=== PATIENT | female | born 1955 | race Caucasian/White ===

== ENCOUNTER 2024-01-01 11:48 | Outpatient (REF) | payer SELFPAY ==
[2024-01-01 13:02] LABS: CDiff Gene PCR NEGATIVE (Negative)
== END 2024-01-01 11:49 | disposition home or self-care (01) ==
LOC: HO.MMNH1L 11:48
PROVIDERS: Visit Provider Family Medicine
DX: Z47.81 Encounter for orthopedic aftercare following surgical amputation (principal); E11.9 Type 2 diabetes mellitus without complications
CPT/HCPCS: 87493

== ENCOUNTER 2024-01-06 06:00 | Outpatient (REF) | payer MEDICARE, MEDICAID, SELFPAY ==
[2024-01-06 06:46] LABS: Basophils Percent Auto 0.4 % (0-2); Eosinophils Absolute Auto 0.1 X10*3/uL (0.0-0.4); Eosinophils Percent Auto 1.4 % (0-4); Hematocrit 34.7 % (37.0-47.0); Imm Gran Abs Auto 0.03 X10*3/uL (0.00-0.03); Imm Gran Pct Auto 0.3 % (0.0-0.4); Lymphocytes Absolute Auto 1.3 X10*3/uL (1.2-4.9); Lymphocytes Percent Auto 12.8 % (20-40); MANUAL DIFF FLAG SCAN; Mean Corpuscular HGB Conc 31.7 g/dl (31.0-35.0); Mean Corpuscular Hemoglobin 28.6 pg (27.0-33.0); Mean Corpuscular Volume 90.1 fL (80.0-98.0); Monocytes Absolute Auto 0.7 X10*3/uL (0.1-1.2); Monocytes Percent Auto 7.1 % (2-11); Neutrophils Absolute Auto 7.7 x10*3/uL (2.0-8.3); PLT CLUMP 1; Red Blood Count 3.85 X10*6/uL (4.20-5.50); Red Cell Distribution Width 17.7 % (11.0-16.0); SCAN SMEAR FLAG 1
[2024-01-06 07:17] LABS: White Blood Count 9.8 X10*3/uL (4.8-10.8)
[2024-01-06 07:19] LABS: SLIDE REVIEW VERIFIED
== END 2024-01-06 06:01 | disposition home or self-care (01) ==
LOC: HO.MMNH1L 06:00
PROVIDERS: Family Medicine; Visit Provider Hospitalist
DX: Z47.81 Encounter for orthopedic aftercare following surgical amputation (principal); E11.9 Type 2 diabetes mellitus without complications; G92.9 Unspecified toxic encephalopathy
CPT/HCPCS: 36415; 80048; 85025

== ENCOUNTER 2024-01-08 05:48 | Outpatient (REF) | payer MEDICARE, MEDICAID, SELFPAY ==
[2024-01-08 06:20] LABS: Anion Gap 14 (12-20); Blood Urea Nitrogen 22 mg/dL (9-16); Carbon Dioxide 23 mmol/L (22-29); Chloride 106 mmol/L (96-108); Estimated Glomerular Filt Rate > 60; Glucose Random 91 mg/dL (60-115); Potassium 4.2 mmol/L (3.3-5.1); Sodium 139 mmol/L (135-145)
== END 2024-01-08 05:49 | disposition home or self-care (01) ==
LOC: HO.MMNH1L 05:48
PROVIDERS: Visit Provider Family Medicine
DX: Z47.81 Encounter for orthopedic aftercare following surgical amputation (principal)
CPT/HCPCS: 36415; 80048

== ENCOUNTER 2024-01-26 06:43 | Outpatient (REF) | payer MEDICARE, SELFPAY ==
[2024-01-26 05:59] LABS: MANUAL DIFF FLAG NO
[2024-01-26 07:18] LABS: Basophils Percent Auto 0.5 % (0-2); Eosinophils Absolute Auto 0.2 X10*3/uL (0.0-0.4); Eosinophils Percent Auto 2.7 % (0-4); Hemoglobin 9.8 g/dl (12.0-16.0); Imm Gran Abs Auto 0.05 X10*3/uL (0.00-0.03); Imm Gran Pct Auto 0.8 % (0.0-0.4); Lymphocytes Absolute Auto 2.5 X10*3/uL (1.2-4.9); Mean Corpuscular HGB Conc 32.7 g/dl (31.0-35.0); Mean Corpuscular Hemoglobin 28.9 pg (27.0-33.0); Mean Corpuscular Volume 88.5 fL (80.0-98.0); Mean Platelet Volume 10.7 fL (9.4-12.3); Monocytes Absolute Auto 0.8 X10*3/uL (0.1-1.2); Neutrophils Absolute Auto 3.1 x10*3/uL (2.0-8.3); Platelet Count 242 X10*3/uL (160-400); Red Blood Count 3.39 X10*6/uL (4.20-5.50); Red Cell Distribution Width 17.7 % (11.0-16.0); White Blood Count 6.6 X10*3/uL (4.8-10.8)
[2024-01-26 08:02] LABS: Anion Gap 16 (12-20); Blood Urea Nitrogen 28 mg/dL (9-16); Calcium 8.5 mg/dL (8.4-10.2); Carbon Dioxide 17 mmol/L (22-29); Chloride 108 mmol/L (96-108); Estimated Glomerular Filt Rate > 60; Glucose Random 52 mg/dL (60-115); Potassium 4.8 mmol/L (3.3-5.1); Sodium 136 mmol/L (135-145)
== END 2024-01-26 06:44 | disposition home or self-care (01) ==
LOC: HO.MMNH1L 06:43
PROVIDERS: Visit Provider Family Medicine
DX: M62.59 Muscle wasting and atrophy, not elsewhere classified, multiple sites (principal); E46 Unspecified protein-calorie malnutrition; E11.9 Type 2 diabetes mellitus without complications
CPT/HCPCS: 36415; 80048; 85025

== ENCOUNTER 2024-01-30 05:40 | Outpatient (REF) | payer MEDICARE, SELFPAY ==
[2024-01-30 06:18] LABS: Basophils Absolute Auto 0.1 X10*3/uL (0.0-0.2); Basophils Percent Auto 0.7 % (0-2); Eosinophils Absolute Auto 0.3 X10*3/uL (0.0-0.4); Eosinophils Percent Auto 2.7 % (0-4); Hematocrit 27.8 % (37.0-47.0); Hemoglobin 8.7 g/dl (12.0-16.0); Imm Gran Abs Auto 0.05 X10*3/uL (0.00-0.03); Imm Gran Pct Auto 0.5 % (0.0-0.4); Lymphocytes Absolute Auto 2.5 X10*3/uL (1.2-4.9); Mean Corpuscular HGB Conc 31.3 g/dl (31.0-35.0); Mean Corpuscular Hemoglobin 28.7 pg (27.0-33.0); Mean Corpuscular Volume 91.7 fL (80.0-98.0); Mean Platelet Volume 12.1 fL (9.4-12.3); Monocytes Absolute Auto 1.2 X10*3/uL (0.1-1.2); Monocytes Percent Auto 11.5 % (2-11); NRBC Pct Auto 0.2 /100WBC (0.0-0.2); Neutrophils Percent Auto 59.6 % (45-73); PLT CLUMP 1; Red Blood Count 3.03 X10*6/uL (4.20-5.50); Red Cell Distribution Width 18.4 % (11.0-16.0); SCAN SMEAR FLAG 1
[2024-01-30 06:20] LABS: MANUAL DIFF FLAG NO; White Blood Count 10.1 X10*3/uL (4.8-10.8)
[2024-01-30 06:39] LABS: Platelet Count 268 X10*3/uL (160-400)
== END 2024-01-30 05:41 | disposition home or self-care (01) ==
LOC: HO.MMNH1L 05:40
PROVIDERS: Visit Provider Family Medicine
DX: E11.9 Type 2 diabetes mellitus without complications (principal)
CPT/HCPCS: 36415; 85025

== ENCOUNTER 2024-02-02 05:41 | Outpatient (REF) | payer MEDICARE, SELFPAY ==
[2024-02-02 05:37] LABS: MANUAL DIFF FLAG NO
[2024-02-02 06:14] LABS: Basophils Percent Auto 0.5 % (0-2); Eosinophils Absolute Auto 0.2 X10*3/uL (0.0-0.4); Eosinophils Percent Auto 2.8 % (0-4); Imm Gran Abs Auto 0.04 X10*3/uL (0.00-0.03); Imm Gran Pct Auto 0.5 % (0.0-0.4); Lymphocytes Absolute Auto 2.7 X10*3/uL (1.2-4.9); Lymphocytes Percent Auto 34.4 % (20-40); Mean Corpuscular HGB Conc 32.3 g/dl (31.0-35.0); Mean Corpuscular Hemoglobin 29.3 pg (27.0-33.0); Mean Corpuscular Volume 90.7 fL (80.0-98.0); Mean Platelet Volume 11.3 fL (9.4-12.3); Monocytes Absolute Auto 0.7 X10*3/uL (0.1-1.2); Monocytes Percent Auto 8.9 % (2-11); Neutrophils Absolute Auto 4.1 x10*3/uL (2.0-8.3); Neutrophils Percent Auto 52.9 % (45-73); Platelet Count 280 X10*3/uL (160-400); Red Blood Count 2.05 X10*6/uL (4.20-5.50); Red Cell Distribution Width 17.2 % (11.0-16.0); White Blood Count 7.8 X10*3/uL (4.8-10.8)
[2024-02-02 06:47] LABS: Anion Gap 15 (12-20); Blood Urea Nitrogen 25 mg/dL (9-16); Calcium 8.9 mg/dL (8.4-10.2); Carbon Dioxide 20 mmol/L (22-29); Chloride 107 mmol/L (96-108); Estimated Glomerular Filt Rate > 60; Ferritin 54 ng/mL (10-250); Glucose Random 80 mg/dL (60-115); Iron 26 mcg/dL (30-160); Percent Iron Saturation 13 % (15-50); Potassium 4.3 mmol/L (3.3-5.1); Sodium 138 mmol/L (135-145); Total Iron Binding Capacity 195 mcg/dL (228-428); Unsaturated Iron Binding 169 ug/dL
[2024-02-02 06:51] LABS: Hematocrit 18.6 % (37.0-47.0)
== END 2024-02-02 05:42 | disposition home or self-care (01) ==
LOC: HO.MMNH1L 05:41
PROVIDERS: Visit Provider Family Medicine
DX: M62.59 Muscle wasting and atrophy, not elsewhere classified, multiple sites (principal); E46 Unspecified protein-calorie malnutrition; E11.9 Type 2 diabetes mellitus without complications
CPT/HCPCS: 36415; 80048; 82728; 83540; 85025

== ENCOUNTER 2024-02-24 06:29 | Outpatient (REF) | payer SELFPAY ==
[2024-02-24 05:55] LABS: MANUAL DIFF FLAG NO
[2024-02-24 06:44] LABS: Basophils Absolute Auto 0.1 X10*3/uL (0.0-0.2); Basophils Percent Auto 0.7 % (0-2); Eosinophils Absolute Auto 0.3 X10*3/uL (0.0-0.4); Eosinophils Percent Auto 4.2 % (0-4); Hematocrit 28.6 % (37.0-47.0); Imm Gran Abs Auto 0.03 X10*3/uL (0.00-0.03); Imm Gran Pct Auto 0.4 % (0.0-0.4); Lymphocytes Absolute Auto 2.2 X10*3/uL (1.2-4.9); Lymphocytes Percent Auto 28.6 % (20-40); Mean Corpuscular HGB Conc 31.5 g/dl (31.0-35.0); Mean Corpuscular Hemoglobin 28.5 pg (27.0-33.0); Mean Corpuscular Volume 90.5 fL (80.0-98.0); Mean Platelet Volume 10.6 fL (9.4-12.3); Monocytes Absolute Auto 0.6 X10*3/uL (0.1-1.2); Monocytes Percent Auto 8.4 % (2-11); Neutrophils Absolute Auto 4.4 x10*3/uL (2.0-8.3); Neutrophils Percent Auto 57.7 % (45-73); Platelet Count 312 X10*3/uL (160-400); Red Blood Count 3.16 X10*6/uL (4.20-5.50); Red Cell Distribution Width 15.3 % (11.0-16.0); White Blood Count 7.7 X10*3/uL (4.8-10.8)
[2024-02-24 06:59] LABS: Anion Gap 14 (12-20); Blood Urea Nitrogen 27 mg/dL (9-16); Calcium 8.9 mg/dL (8.4-10.2); Carbon Dioxide 18 mmol/L (22-29); Chloride 110 mmol/L (96-108); Estimated Glomerular Filt Rate > 60; Glucose Random 62 mg/dL (60-115); Potassium 4.8 mmol/L (3.3-5.1); Sodium 137 mmol/L (135-145)
== END 2024-02-24 06:30 | disposition home or self-care (01) ==
LOC: HO.MMNH1L 06:29
PROVIDERS: Visit Provider Hospitalist
DX: M62.59 Muscle wasting and atrophy, not elsewhere classified, multiple sites (principal); E46 Unspecified protein-calorie malnutrition; E11.9 Type 2 diabetes mellitus without complications
CPT/HCPCS: 36415; 80048; 85025

== ENCOUNTER 2024-03-01 18:20 | Outpatient (REF) | payer MEDICARE, MEDICAID, SELFPAY | END 2024-03-01 18:21 | disposition home or self-care (01) | LOC: HO.MMNH1L 18:20 | PROVIDERS: Visit Provider Family Medicine | DX: M62.59 Muscle wasting and atrophy, not elsewhere classified, multiple sites (principal) | CPT/HCPCS: 87070; 87077; 87186; 87205 ==

== ENCOUNTER 2024-03-22 06:52 | Outpatient (REF) | payer MEDICARE, MEDICAID, SELFPAY ==
[2024-03-22 05:50] LABS: MANUAL DIFF FLAG NO
[2024-03-22 07:11] LABS: Basophils Percent Auto 0.6 % (0-2); Eosinophils Absolute Auto 0.2 X10*3/uL (0.0-0.4); Eosinophils Percent Auto 3.1 % (0-4); Hematocrit 25.6 % (37.0-47.0); Hemoglobin 7.9 g/dl (12.0-16.0); Imm Gran Abs Auto 0.02 X10*3/uL (0.00-0.03); Imm Gran Pct Auto 0.3 % (0.0-0.4); Lymphocytes Absolute Auto 1.7 X10*3/uL (1.2-4.9); Mean Corpuscular HGB Conc 30.9 g/dl (31.0-35.0); Mean Corpuscular Hemoglobin 27.1 pg (27.0-33.0); Mean Corpuscular Volume 87.7 fL (80.0-98.0); Mean Platelet Volume 11.2 fL (9.4-12.3); Monocytes Absolute Auto 0.9 X10*3/uL (0.1-1.2); Monocytes Percent Auto 13.5 % (2-11); Neutrophils Absolute Auto 3.8 x10*3/uL (2.0-8.3); Neutrophils Percent Auto 57.5 % (45-73); Platelet Count 279 X10*3/uL (160-400); Red Blood Count 2.92 X10*6/uL (4.20-5.50); Red Cell Distribution Width 15.1 % (11.0-16.0); White Blood Count 6.7 X10*3/uL (4.8-10.8)
[2024-03-22 07:14] LABS: Anion Gap 13 (12-20); Blood Urea Nitrogen 24 mg/dL (9-16); Calcium 8.9 mg/dL (8.4-10.2); Carbon Dioxide 23 mmol/L (22-29); Chloride 110 mmol/L (96-108); Estimated Glomerular Filt Rate > 60; Glucose Random 73 mg/dL (60-115); Potassium 4.1 mmol/L (3.3-5.1); Sodium 142 mmol/L (135-145)
== END 2024-03-22 06:53 | disposition home or self-care (01) ==
LOC: HO.MMNH1L 06:52
PROVIDERS: Visit Provider Family Medicine
DX: M62.59 Muscle wasting and atrophy, not elsewhere classified, multiple sites (principal); E46 Unspecified protein-calorie malnutrition; E11.9 Type 2 diabetes mellitus without complications
CPT/HCPCS: 36415; 80048; 85025

== ENCOUNTER 2024-03-29 06:41 | Outpatient (REF) | payer MEDICARE, MEDICAID, SELFPAY ==
[2024-03-29 06:14] LABS: MANUAL DIFF FLAG NO
[2024-03-29 07:00] LABS: Basophils Percent Auto 0.5 % (0-2); Eosinophils Absolute Auto 0.2 X10*3/uL (0.0-0.4); Eosinophils Percent Auto 3.3 % (0-4); Hematocrit 26.3 % (37.0-47.0); Imm Gran Abs Auto 0.01 X10*3/uL (0.00-0.03); Imm Gran Pct Auto 0.2 % (0.0-0.4); Lymphocytes Absolute Auto 1.7 X10*3/uL (1.2-4.9); Lymphocytes Percent Auto 27.4 % (20-40); Mean Corpuscular HGB Conc 30.4 g/dl (31.0-35.0); Mean Corpuscular Hemoglobin 26.3 pg (27.0-33.0); Mean Corpuscular Volume 86.5 fL (80.0-98.0); Mean Platelet Volume 10.9 fL (9.4-12.3); Monocytes Absolute Auto 0.8 X10*3/uL (0.1-1.2); Monocytes Percent Auto 12.6 % (2-11); Neutrophils Absolute Auto 3.4 x10*3/uL (2.0-8.3); Platelet Count 268 X10*3/uL (160-400); Red Blood Count 3.04 X10*6/uL (4.20-5.50); Red Cell Distribution Width 14.9 % (11.0-16.0); White Blood Count 6.1 X10*3/uL (4.8-10.8)
[2024-03-29 07:23] LABS: Anion Gap 11 (12-20); Blood Urea Nitrogen 28 mg/dL (9-16); Calcium 8.5 mg/dL (8.4-10.2); Carbon Dioxide 22 mmol/L (22-29); Chloride 113 mmol/L (96-108); Estimated Glomerular Filt Rate > 60; Glucose Random 76 mg/dL (60-115); Potassium 4.4 mmol/L (3.3-5.1); Sodium 142 mmol/L (135-145)
== END 2024-03-29 06:42 | disposition home or self-care (01) ==
LOC: HO.MMNH1L 06:41
PROVIDERS: Visit Provider Family Medicine
DX: M62.59 Muscle wasting and atrophy, not elsewhere classified, multiple sites (principal); E46 Unspecified protein-calorie malnutrition; E11.9 Type 2 diabetes mellitus without complications
CPT/HCPCS: 36415; 80048; 85025

== ENCOUNTER 2024-04-05 06:16 | Outpatient (REF) | payer MEDICARE, MEDICAID, SELFPAY ==
[2024-04-05 07:35] LABS: Thyroid Stimulating Hormone 0.07 uIU/mL (0.32-4.0)
[2024-04-05 08:32] LABS: Estimated Average Glucose 103 mg/dL; Hemoglobin A1C 68.8332 umol/L; Hemoglobin A1c % 5.2 % (<6.0); Total Hemoglobin (HGBA1C) 2057.5209 umol/L
== END 2024-04-05 06:17 | disposition home or self-care (01) ==
LOC: HO.MMNH1L 06:16
PROVIDERS: Visit Provider Hospitalist
DX: D64.9 Anemia, unspecified (principal)
CPT/HCPCS: 36415; 83036; 84443

== ENCOUNTER 2024-04-29 05:59 | Outpatient (REF) | payer MEDICARE, SELFPAY ==
[2024-04-29 06:02] LABS: MANUAL DIFF FLAG NO
[2024-04-29 06:37] LABS: Basophils Percent Auto 0.5 % (0-2); Eosinophils Absolute Auto 0.3 X10*3/uL (0.0-0.4); Eosinophils Percent Auto 3.5 % (0-4); Hematocrit 24.1 % (37.0-47.0); Hemoglobin 7.4 g/dl (12.0-16.0); Imm Gran Abs Auto 0.06 X10*3/uL (0.00-0.03); Imm Gran Pct Auto 0.7 % (0.0-0.4); Lymphocytes Absolute Auto 2.6 X10*3/uL (1.2-4.9); Lymphocytes Percent Auto 32.2 % (20-40); Mean Corpuscular HGB Conc 30.7 g/dl (31.0-35.0); Mean Corpuscular Hemoglobin 25.9 pg (27.0-33.0); Mean Corpuscular Volume 84.3 fL (80.0-98.0); Monocytes Absolute Auto 0.8 X10*3/uL (0.1-1.2); Monocytes Percent Auto 10.3 % (2-11); Neutrophils Absolute Auto 4.2 x10*3/uL (2.0-8.3); Neutrophils Percent Auto 52.8 % (45-73); Platelet Count 215 X10*3/uL (160-400); Red Blood Count 2.86 X10*6/uL (4.20-5.50); Red Cell Distribution Width 15.5 % (11.0-16.0)
== END 2024-04-29 06:00 | disposition home or self-care (01) ==
LOC: HO.MMNH1L 05:59
DX: M62.59 Muscle wasting and atrophy, not elsewhere classified, multiple sites (principal); Z47.81 Encounter for orthopedic aftercare following surgical amputation
CPT/HCPCS: 36415; 85025

== ENCOUNTER 2024-05-24 06:25 | Outpatient (REF) | payer MEDICARE, SELFPAY ==
[2024-05-24 06:19] LABS: MANUAL DIFF FLAG NO
[2024-05-24 06:24] LABS: Basophils Percent Auto 0.5 % (0-2); Eosinophils Absolute Auto 0.3 X10*3/uL (0.0-0.4); Hematocrit 24.6 % (37.0-47.0); Hemoglobin 7.6 g/dl (12.0-16.0); Imm Gran Abs Auto 0.02 X10*3/uL (0.00-0.03); Imm Gran Pct Auto 0.3 % (0.0-0.4); Lymphocytes Absolute Auto 1.9 X10*3/uL (1.2-4.9); Lymphocytes Percent Auto 30.2 % (20-40); Mean Corpuscular HGB Conc 30.9 g/dl (31.0-35.0); Mean Corpuscular Hemoglobin 25.3 pg (27.0-33.0); Mean Platelet Volume 11.4 fL (9.4-12.3); Monocytes Absolute Auto 0.8 X10*3/uL (0.1-1.2); Monocytes Percent Auto 12.1 % (2-11); Neutrophils Absolute Auto 3.3 x10*3/uL (2.0-8.3); Neutrophils Percent Auto 51.9 % (45-73); Platelet Count 262 X10*3/uL (160-400); Red Cell Distribution Width 15.6 % (11.0-16.0); White Blood Count 6.4 X10*3/uL (4.8-10.8)
[2024-05-24 06:40] LABS: Anion Gap 12 (12-20); Blood Urea Nitrogen 19 mg/dL (9-16); Calcium 8.4 mg/dL (8.4-10.2); Carbon Dioxide 24 mmol/L (22-29); Chloride 109 mmol/L (96-108); Estimated Glomerular Filt Rate > 60; Glucose Random 73 mg/dL (60-115); Potassium 3.9 mmol/L (3.3-5.1); Sodium 141 mmol/L (135-145)
== END 2024-05-24 06:26 | disposition home or self-care (01) ==
LOC: HO.MMNH1L 06:25
PROVIDERS: Visit Provider Nurse Practitioner
DX: D64.9 Anemia, unspecified (principal); I10 Essential (primary) hypertension; G70.00 Myasthenia gravis without (acute) exacerbation
CPT/HCPCS: 36415; 80048; 85025

== ENCOUNTER 2024-06-28 06:08 | Outpatient (REF) | payer MEDICARE, SELFPAY ==
[2024-06-28 06:06] LABS: MANUAL DIFF FLAG NO
[2024-06-28 06:32] LABS: Basophils Percent Auto 0.6 % (0-2); Eosinophils Absolute Auto 0.3 X10*3/uL (0.0-0.4); Hematocrit 27.3 % (37.0-47.0); Hemoglobin 8.3 g/dl (12.0-16.0); Imm Gran Abs Auto 0.02 X10*3/uL (0.00-0.03); Imm Gran Pct Auto 0.3 % (0.0-0.4); Lymphocytes Absolute Auto 1.9 X10*3/uL (1.2-4.9); Lymphocytes Percent Auto 27.7 % (20-40); Mean Corpuscular HGB Conc 30.4 g/dl (31.0-35.0); Mean Corpuscular Hemoglobin 24.9 pg (27.0-33.0); Mean Platelet Volume 11.5 fL (9.4-12.3); Monocytes Absolute Auto 0.7 X10*3/uL (0.1-1.2); Monocytes Percent Auto 10.4 % (2-11); Neutrophils Absolute Auto 3.9 x10*3/uL (2.0-8.3); Platelet Count 239 X10*3/uL (160-400); Red Blood Count 3.33 X10*6/uL (4.20-5.50); Red Cell Distribution Width 16.3 % (11.0-16.0); White Blood Count 6.8 X10*3/uL (4.8-10.8)
[2024-06-28 06:54] LABS: Anion Gap 10 (12-20); Blood Urea Nitrogen 26 mg/dL (9-16); Calcium 8.7 mg/dL (8.4-10.2); Carbon Dioxide 22 mmol/L (22-29); Chloride 112 mmol/L (96-108); Estimated Glomerular Filt Rate > 60; Glucose Random 71 mg/dL (60-115); Potassium 4.3 mmol/L (3.3-5.1); Sodium 140 mmol/L (135-145)
== END 2024-06-28 06:09 | disposition home or self-care (01) ==
LOC: HO.MMNH1L 06:08
PROVIDERS: Visit Provider Nurse Practitioner
DX: D64.9 Anemia, unspecified (principal); I10 Essential (primary) hypertension; G70.00 Myasthenia gravis without (acute) exacerbation
CPT/HCPCS: 36415; 80048; 85025

== ENCOUNTER 2024-07-26 06:16 | Outpatient (REF) | payer MEDICARE, MEDICAID, SELFPAY ==
[2024-07-26 06:04] LABS: MANUAL DIFF FLAG NO
[2024-07-26 06:40] LABS: Basophils Percent Auto 0.5 % (0-2); Eosinophils Absolute Auto 0.2 X10*3/uL (0.0-0.4); Eosinophils Percent Auto 3.2 % (0-4); Hematocrit 28.2 % (37.0-47.0); Hemoglobin 8.7 g/dl (12.0-16.0); Imm Gran Abs Auto 0.01 X10*3/uL (0.00-0.03); Imm Gran Pct Auto 0.2 % (0.0-0.4); Lymphocytes Absolute Auto 1.7 X10*3/uL (1.2-4.9); Lymphocytes Percent Auto 25.8 % (20-40); Mean Corpuscular HGB Conc 30.9 g/dl (31.0-35.0); Mean Corpuscular Hemoglobin 25.2 pg (27.0-33.0); Mean Corpuscular Volume 81.7 fL (80.0-98.0); Mean Platelet Volume 11.3 fL (9.4-12.3); Monocytes Absolute Auto 0.8 X10*3/uL (0.1-1.2); Monocytes Percent Auto 11.5 % (2-11); Neutrophils Absolute Auto 3.9 x10*3/uL (2.0-8.3); Neutrophils Percent Auto 58.8 % (45-73); Platelet Count 234 X10*3/uL (160-400); Red Blood Count 3.45 X10*6/uL (4.20-5.50); Red Cell Distribution Width 16.4 % (11.0-16.0); White Blood Count 6.6 X10*3/uL (4.8-10.8)
[2024-07-26 06:52] LABS: Anion Gap 12 (12-20); Blood Urea Nitrogen 27 mg/dL (9-16); Calcium 8.7 mg/dL (8.4-10.2); Carbon Dioxide 23 mmol/L (22-29); Chloride 111 mmol/L (96-108); Estimated Glomerular Filt Rate > 60; Glucose Random 76 mg/dL (60-115); Potassium 4.1 mmol/L (3.3-5.1); Sodium 142 mmol/L (135-145)
== END 2024-07-26 06:17 | disposition home or self-care (01) ==
LOC: HO.MMNH1L 06:16
PROVIDERS: Visit Provider Nurse Practitioner
DX: D64.9 Anemia, unspecified (principal); I10 Essential (primary) hypertension; G47.00 Insomnia, unspecified
CPT/HCPCS: 36415; 80048; 85025

== ENCOUNTER 2024-08-10 06:26 | Outpatient (REF) | payer MEDICARE, MEDICAID, SELFPAY ==
[2024-08-10 07:07] LABS: Alanine Aminotransferase 14 U/L (0-31); Alkaline Phosphatase 31 U/L (39-117); Anion Gap 10 (12-20); Aspartate Amino Transferase 23 U/L (5-31); Bilirubin Total 0.2 mg/dL (0.0-1.0); Blood Urea Nitrogen 27 mg/dL (9-16); Calcium 8.7 mg/dL (8.4-10.2); Carbon Dioxide 24 mmol/L (22-29); Chloride 111 mmol/L (96-108); Cholesterol 83 mg/dL (<200); Estimated Glomerular Filt Rate > 60; Glucose Random 75 mg/dL (60-115); HDL Cholesterol 35 mg/dL (>40); LDL Cholesterol Calculated 41 mg/dL (<100); Potassium 4.4 mmol/L (3.3-5.1); Sodium 141 mmol/L (135-145); Total Protein 5.7 g/dL (6.5-8.0); Triglycerides 36 mg/dL (<150)
== END 2024-08-10 06:27 | disposition home or self-care (01) ==
LOC: HO.MMNH1L 06:26
PROVIDERS: Visit Provider Nurse Practitioner
DX: F01.50 Vascular dementia, unspecified severity, without behavioral disturbance, psychotic disturbance, mood disturbance, and anxiety (principal); Z13.6 Encounter for screening for cardiovascular disorders
CPT/HCPCS: 36415; 80053; 80061

== ENCOUNTER 2024-08-13 08:44 | Outpatient (REF) | payer MEDICARE, MEDICAID, SELFPAY ==
[2024-08-13 10:22] LABS: Influenza A PCR NEGATIVE (Negative); Influenza B PCR NEGATIVE (Negative); Resp Syncy Virus RNA Qual PCR NEGATIVE (Negative); SARS COV2 PCR INHOUSE NEGATIVE (Negative)
== END 2024-08-13 08:45 | disposition home or self-care (01) ==
LOC: HO.MMNH1L 08:44
PROVIDERS: Visit Provider Nurse Practitioner
DX: F41.9 Anxiety disorder, unspecified (principal)
CPT/HCPCS: 0241U

== ENCOUNTER 2024-08-14 11:36 | Outpatient (REF) | payer MEDICARE, MEDICAID, SELFPAY ==
[2024-08-14 12:08] LABS: Basophils Percent Auto 0.7 % (0-2); Eosinophils Percent Auto 0.7 % (0-4); Imm Gran Abs Auto 0.01 X10*3/uL (0.00-0.03); Imm Gran Pct Auto 0.2 % (0.0-0.4); Lymphocytes Absolute Auto 0.8 X10*3/uL (1.2-4.9); Lymphocytes Percent Auto 18.5 % (20-40); MANUAL DIFF FLAG NO; Mean Corpuscular Hemoglobin 25.6 pg (27.0-33.0); Mean Corpuscular Volume 82.4 fL (80.0-98.0); Mean Platelet Volume 11.3 fL (9.4-12.3); Monocytes Absolute Auto 0.7 X10*3/uL (0.1-1.2); Monocytes Percent Auto 16.8 % (2-11); Neutrophils Absolute Auto 2.6 x10*3/uL (2.0-8.3); Neutrophils Percent Auto 63.1 % (45-73); Platelet Count 237 X10*3/uL (160-400); Red Blood Count 3.52 X10*6/uL (4.20-5.50); Red Cell Distribution Width 16.8 % (11.0-16.0); White Blood Count 4.1 X10*3/uL (4.8-10.8)
[2024-08-14 12:24] LABS: Alanine Aminotransferase 19 U/L (0-31); Albumin Level 3.4 g/dL (3.5-5.0); Alkaline Phosphatase 33 U/L (39-117); Anion Gap 12 (12-20); Aspartate Amino Transferase 25 U/L (5-31); Bilirubin Total 0.2 mg/dL (0.0-1.0); Blood Urea Nitrogen 21 mg/dL (9-16); Calcium 8.7 mg/dL (8.4-10.2); Carbon Dioxide 22 mmol/L (22-29); Chloride 107 mmol/L (96-108); Estimated Glomerular Filt Rate > 60; Glucose Random 106 mg/dL (60-115); Magnesium 1.8 mg/dL (1.6-2.6); Potassium 4.3 mmol/L (3.3-5.1); Sodium 137 mmol/L (135-145); Total Protein 6.4 g/dL (6.5-8.0)
[2024-08-14 12:37] LABS: Procalcitonin 0.05 ng/mL
== END 2024-08-14 11:37 | disposition home or self-care (01) ==
LOC: HO.MMNH1L 11:36
PROVIDERS: Visit Provider Nurse Practitioner
DX: R50.9 Fever, unspecified (principal)
CPT/HCPCS: 36415; 80053; 83735; 84145; 85025; 87040

== ENCOUNTER 2024-08-16 06:17 | Outpatient (REF) | payer MEDICARE, MEDICAID, SELFPAY ==
--- OUTSIDE RECORDS SUMMARY | 2024-08-16 06:19 | XMS_ITS | Patient Health Record ---
Author Organization [facility] Billing Info Address [address] [place] [id number] Care Team Providers Care Tower Hand Name Role Phone YULY Jin Unavailable [phone] Reason For Referral No Information Plan Of Treatment No Information
[2024-08-16 07:34] LABS: Appearance Urine Clear; Color Urine Yellow; Glucose Urine UA Negative (Negative); Leukocyte Esterase Urine Negative (Negative); Nitrite Urine Negative (Negative); Specific Gravity - Urine 1.015 (1.005-1.025); Urine Blood Negative (Negative); Urine Ketones Negative (Negative); Urine Protein Negative (Neg-Trace)
== END 2024-08-16 06:18 | disposition home or self-care (01) ==
LOC: HO.MMNH1L 06:17
PROVIDERS: Visit Provider Nurse Practitioner
DX: N39.0 Urinary tract infection, site not specified (principal)
CPT/HCPCS: 81003; 87086

== ENCOUNTER 2024-08-17 14:00 | Outpatient (REF) | payer MEDICARE, MEDICAID, SELFPAY ==
--- OUTSIDE RECORDS SUMMARY | 2024-08-18 07:28 | XMS_ITS | Patient Health Record ---
Author Organization [facility] Billing Info Address [address] [place] [address] Care Team Providers Care Microarray Specialist Name Role Phone YULY Jin Unavailable [phone] Reason For Referral No Information Plan Of Treatment No Information
== END 2024-08-17 14:01 | disposition home or self-care (01) ==
LOC: HO.MMNH1L 14:00
PROVIDERS: Visit Provider Nurse Practitioner
DX: M62.59 Muscle wasting and atrophy, not elsewhere classified, multiple sites (principal); I73.9 Peripheral vascular disease, unspecified
CPT/HCPCS: 0241U

== ENCOUNTER 2024-08-18 05:48 | Outpatient (REF) | payer MEDICARE, MEDICAID, SELFPAY | END 2024-08-18 05:49 | disposition home or self-care (01) | LOC: HO.MMNH1L 05:48 | PROVIDERS: Visit Provider Nurse Practitioner | DX: Z13.89 Encounter for screening for other disorder (principal) ==

== ENCOUNTER 2024-09-07 16:41 | Outpatient (REF) | payer MEDICARE, MEDICAID, SELFPAY ==
[2024-09-08 12:14] LABS: Adenovirus PCR Not Detected (Not Detect.); Bordetella parapertussis PCR Not Detected (Not Detect.); Bordetella pertussis PCR Not Detected (Not Detect.); Chlamydia pneumoniae PCR Not Detected (Not Detect.); Coronavirus 229E PCR Not Detected (Not Detect.); Coronavirus HKU1 PCR Not Detected (Not Detect.); Coronavirus NL63 PCR Not Detected (Not Detect.); Coronavirus OC43 PCR Not Detected (Not Detect.); Human metapneumovirus PCR Not Detected (Not Detect.); Influenza A PCR Not Detected (Not Detect.); Influenza B PCR Not Detected (Not Detect.); Mycoplasma pneumoniae PCR Not Detected (Not Detect.); Parainfluenza 1 PCR Not Detected (Not Detect.); Parainfluenza 2 PCR Not Detected (Not Detect.); Parainfluenza 3 PCR Not Detected (Not Detect.); Parainfluenza 4 PCR Not Detected (Not Detect.); RSV PCR Detected (Not Detect.); Rhino/Enterovirus PCR Not Detected (Not Detect.); SARS-CoV-2 PCR Not Detected (Not Detect.)
== END 2024-09-07 16:42 | disposition home or self-care (01) ==
LOC: HO.MMNH1L 16:41
PROVIDERS: Visit Provider Nurse Practitioner
DX: Z47.81 Encounter for orthopedic aftercare following surgical amputation (principal)
CPT/HCPCS: 87633

== ENCOUNTER 2024-09-20 05:42 | Outpatient (REF) | payer MEDICARE, MEDICAID, SELFPAY ==
[2024-09-20 05:39] LABS: MANUAL DIFF FLAG NO
[2024-09-20 06:22] LABS: Basophils Absolute Auto 0.1 X10*3/uL (0.0-0.2); Basophils Percent Auto 0.9 % (0-2); Eosinophils Absolute Auto 0.1 X10*3/uL (0.0-0.4); Eosinophils Percent Auto 1.9 % (0-4); Hemoglobin 7.9 g/dl (12.0-16.0); Imm Gran Abs Auto 0.03 X10*3/uL (0.00-0.03); Imm Gran Pct Auto 0.4 % (0.0-0.4); Lymphocytes Absolute Auto 2.1 X10*3/uL (1.2-4.9); Lymphocytes Percent Auto 29.6 % (20-40); Mean Corpuscular HGB Conc 30.4 g/dl (31.0-35.0); Mean Corpuscular Hemoglobin 26.5 pg (27.0-33.0); Mean Corpuscular Volume 87.2 fL (80.0-98.0); Mean Platelet Volume 10.7 fL (9.4-12.3); Monocytes Absolute Auto 0.6 X10*3/uL (0.1-1.2); Monocytes Percent Auto 8.5 % (2-11); Neutrophils Absolute Auto 4.1 x10*3/uL (2.0-8.3); Neutrophils Percent Auto 58.7 % (45-73); Platelet Count 419 X10*3/uL (160-400); Red Blood Count 2.98 X10*6/uL (4.20-5.50); Red Cell Distribution Width 18.3 % (11.0-16.0)
[2024-09-20 06:35] LABS: Anion Gap 12 (12-20); Blood Urea Nitrogen 25 mg/dL (9-16); Calcium 8.6 mg/dL (8.4-10.2); Carbon Dioxide 20 mmol/L (22-29); Chloride 112 mmol/L (96-108); Estimated Glomerular Filt Rate > 60; Glucose Random 74 mg/dL (60-115); Potassium 4.2 mmol/L (3.3-5.1); Sodium 140 mmol/L (135-145)
== END 2024-09-20 05:43 | disposition home or self-care (01) ==
LOC: HO.MMNH1L 05:42
PROVIDERS: Visit Provider Student in an Organized Health Care Education/Training Program
DX: Z47.81 Encounter for orthopedic aftercare following surgical amputation (principal); Z89.611 Acquired absence of right leg above knee; F01.A0 Vascular dementia, mild, without behavioral disturbance, psychotic disturbance, mood disturbance, and anxiety
CPT/HCPCS: 36415; 80048; 85025

== ENCOUNTER 2024-10-14 17:48 | Outpatient (REF) | payer SELFPAY ==
[2024-10-15 09:25] LABS: Adenovirus PCR Not Detected (Not Detect.); Bordetella parapertussis PCR Not Detected (Not Detect.); Bordetella pertussis PCR Not Detected (Not Detect.); Chlamydia pneumoniae PCR Not Detected (Not Detect.); Coronavirus 229E PCR Not Detected (Not Detect.); Coronavirus HKU1 PCR Not Detected (Not Detect.); Coronavirus NL63 PCR Not Detected (Not Detect.); Coronavirus OC43 PCR Not Detected (Not Detect.); Human metapneumovirus PCR Not Detected (Not Detect.); Influenza A PCR Not Detected (Not Detect.); Influenza B PCR Not Detected (Not Detect.); Mycoplasma pneumoniae PCR Not Detected (Not Detect.); Parainfluenza 1 PCR Not Detected (Not Detect.); Parainfluenza 2 PCR Not Detected (Not Detect.); Parainfluenza 3 PCR Not Detected (Not Detect.); Parainfluenza 4 PCR Not Detected (Not Detect.); RSV PCR Not Detected (Not Detect.); Rhino/Enterovirus PCR Not Detected (Not Detect.)
[2024-10-15 09:58] LABS: Influenza A H1 PCR Not Detected (Not Detect.); Influenza A H1-2009 PCR Not Detected (Not Detect.); Influenza A H3 PCR Not Detected (Not Detect.); SARS-CoV-2 PCR Not Detected (Not Detect.)
== END 2024-10-14 17:49 | disposition home or self-care (01) ==
LOC: HO.MMNH1L 17:48
PROVIDERS: Visit Provider Nurse Practitioner Family
DX: E11.9 Type 2 diabetes mellitus without complications (principal); I10 Essential (primary) hypertension
CPT/HCPCS: 87633

== ENCOUNTER 2024-11-01 06:12 | Outpatient (REF) | payer MEDICARE, SELFPAY ==
[2024-11-01 06:11] LABS: MANUAL DIFF FLAG NO
--- OUTSIDE RECORDS SUMMARY | 2024-11-01 06:15 | XMS_ITS | Patient Health Record ---
Author Organization [facility] Billing Info Address [address] [place] [address] Care Team Providers Care Hog Buyer Name Role Phone francineYULY Jett Unavailable [phone] Reason For Referral No Information Plan Of Treatment No Information
--- OUTSIDE RECORDS SUMMARY | 2024-11-01 06:15 | XMS_ITS | Encounter Summary ---
Author Organization [email or web address] Address [address] [facility] 7t [place] [address] Care Team Providers Care Trash Hauler Name Role Phone Unavailable Primary Care Provider Unavailabl e Encounter Details Date Type Department Care Team (Latest Contact Info) Description 07/28/2018 Abstract [facility] CONVERSIONS Dental, Provider, DDS Social History Tobacco Use Types Packs/Day Years Used Date Smoking Tobacco: Never Assessed Comments Unknown Sex and Gender Information Value Date Recorded Sex Assigned at Female 04/22/2022 10:29 AM EDT Legal Sex Female 10:29 AM EDT Gender Identity Female 04/22/2022 10:29 AM EDT Sexual Orientation Straight 04/22/2022 10 :29 AM EDT documented as of this encounter Plan of Treatment Not on file documented as of this encounter Visit Diagnoses Not on filedocumented in this encounter
--- OUTSIDE RECORDS SUMMARY | 2024-11-01 06:15 | XMS_ITS | Encounter Summary ---
Author Organization [employer] Address [address] [facility] 7t [place] [address] Care Team Providers Care Laboratory Helper Name Role Phone Unavailable Primary Care Provider Unavailabl e Encounter Details Date Type Department Care Team (Latest Contact Info) Description 10/04/2020 Abstract [facility] CONVERSIONS Dental, Provider, DDS Social History Tobacco [...]
--- OUTSIDE RECORDS SUMMARY | 2024-11-01 06:15 | XMS_ITS | Clinical Summary ---
Author Organization [facility] it Address [address] [place] [address] Care Team Providers Care Inner Layer Scrubber Tender Name Role Phone Unavailable Primary Care Provider Unavailabl e Immunizations Name Administration Dates Next Due Pfizer SARS-CoV-2 COVID-19, mRNA, LNP-S, preservative free 09/27/2020,09/02/2020 Surgical History Surgery Date Site/Laterality Comments NECK SURGERY PROCEDURE: HISTORICAL NECK SURGERY; COMMENT: spinal stenosis TONSILLECTOMY PROCEDURE: HISTORICAL TONSILLECTOMY CHOLECYSTECTOMY 12/1989 PROCEDURE: HISTORICAL CHOLECYSTECTOMY BREAST REDUCTION PROCEDURE: [place] BREAST REDUCTION ROBOTIC ASSISTED HYSTERECTOMY 05/31/14 PROCEDURE: HISTORICAL ROBOTIC HYSTERECTOMY WITH OR WITHOUT BSO; COMMENT: BSO; endometroid adenocarcinoma BREAST BIOPSY PROCEDURE: BX BREAST; PERC NEEDLE CORE W/IMAG GUID; COMMENT: ? rt side noncancerous Medical History Medical History Date Comments HTN (hypertension) DX:HTN (hyper tension) Myasthenia gravis (CMS/HCC V 24, CMS/HCC V28) DX:Myasthenia gravis (HCC) Peripheral neuropathy DX:Periphe ral neuropathy Elevated fasting glucose DX:Elev ated fasting glucose CAD (coronary artery disease) DX :CAD (coronary artery disease); COMMENT: h/o stent CVA (cerebral infarction) DX:CVA (cerebral infarction) Spinal stenosis DX:Spinal stenos is Hypothyroidism DX:Hypothyroidis m Leg edema DX:Leg edema Obesity DX:Obesity Type II or unspecified type diabetes mellitus with unspecified complication, not stated as uncontrolled DX:Type II or unspecified t ype diabetes mellitus with unspecified complication, not stated as uncontrolled Endometrial adenocarcinoma ( CMS/HCC V24, CMS/HCC V28) DX:Endometrial adenocarcinom a (HCC) History of other specified c onditions presenting hazards to health DX:History of other speci fied conditions presenting hazards to health; COMMENT: pt had ? ca in lining of the uterus pr pt- pt had hysterectomy in may 2014 Family History Medical History Relation Name Comments Blindness Neg Hx Breast cancer Neg Hx Cataracts Neg Hx Colon cancer Neg Hx Glaucoma Neg Hx Macular degeneration Neg Hx Ovarian cancer Neg Hx Strabismus Neg Hx Social History Tobacco Use Types Packs/Day Years Used Date Smoking Tobacco: Former Smokeless Tobacco: Never Alcohol Use Standard Drinks/Week Comments Yes 0 (1 standard drink = 0.6 oz pur e alcohol) Comments Unknown Sex and Gender Information Value Date Recorded Sex Assigned at Not on file Legal Sex Female 8:27 PM EST Gender Identity Not on file Sexual Orientation Not on file Obstetrics History Plan of Treatment Health Maintenance Due Date Last Done Comments Breast Cancer Screening 1955 Zoster Vaccines (1 of 2) 10/18/2005 Pneumococcal Vaccine: 50+ Years (2 of 2 - PCV) 03/10/2015 03/10/2014 DTaP,Tdap,and Td Vaccines (2 - Td or Tdap) 02/10/2019 02/10/2009 COVID-19 Vaccine (3 - 2023-2 5 season) 2024 09/27/2020, 09/02/2020 Influenza Vaccine (Season Ended) 2025 04/04/2014 RSV Immunization Adult Patients (1 - 1-dose 75+ series) 10/18/2030 HIB Vaccines Aged Out No longer eligi ble based on patient's age to complete this topic HPV Vaccines Aged Out No longer eligi ble based on patient's age to complete this topic Hepatitis A Vaccines Aged Out No long er eligible based on patient's age to complete this topic Hepatitis B Vaccines Aged Out No long er eligible based on patient's age to complete this topic IPV Vaccines Aged Out No longer eligi ble based on patient's age to complete this topic MMR Vaccines Aged Out No longer eligi ble based on patient's age to complete this topic Meningococcal ACWY Vaccine Aged Out N o longer eligible based on patient's age to complete this topic Meningococcal B Vaccine Aged Out No l onger eligible based on patient's age to complete this topic RSV Immunization Patients Under 20 months Aged Out No longer eligible b ased on patient's age to complete this topic Varicella Vaccines Aged Out No longer eligible based on patient's age to complete this topic
--- OUTSIDE RECORDS SUMMARY | 2024-11-01 06:15 | XMS_ITS | Encounter Summary ---
Author Organization [employer] Address [address] [facility] [address] 7t [place] [address] Care Team Providers Care Disability Services Coordinator Name Role Phone Unavailable Primary Care Provider Unavailabl e Reason for Visit * Reason Onset Date Comments medical clearance 08/22/2022 Encounter Details Date Type Department Care Team (Late st Contact Info) Description 08/22/2022 Telephone [facility] [address] [place] [address] Juliana Slaughter DDS medical clearance Social History Tobacco Use Types Packs/Day Years Used Date Smoking Tobacco: Never Smokeless Tobacco: Never Alcohol Use Standard Drinks/Week Comments Defer 0 (1 standard drink = 0.6 oz pur e alcohol) Comments Unknown Sex and Gender Information Value Date Recorded Sex Assigned at Female 04/22/2022 10:29 AM EDT Legal Sex Female 10:29 AM EDT Gender Identity Female 04/22/2022 10:29 AM EDT Sexual Orientation Straight 04/22/2022 10 :29 AM EDT COVID-19 Exposure Response Date Recorded In the last 10 days, have yo u been in contact with someone who was confirmed or suspected to have Coronavirus/COVID-19? No / Unsure 08/19/2022 3:02 PM EST documented as of this encounter Miscellaneous Notes * Telephone Encounter - Seble Benitez - 09/04/2022 12:52 PM EDT Pat Ochoa 1955 Medical clearance form was faxed over to physicians office on 09/04 * Telephone Encounter - Seble Benitez - 08/29/2022 9:[address] [facility] called stating that there was a form that was sent in to them due to patient needing treatment. She stated that it was sent a few days ago but they never received it. It was for medical clearance. Pls re send [phone] * Telephone Encounter - Susan Sandoval - 08/29/2022 8:40 AM EST Patient calling in to confirm if medical clearance was received from provider so that she can have her RCT done DR * Telephone Encounter - Susan Sandoval - 08/22/2022 9:[address] [facility] called stating that there was a form that was sent in to them due to patient needing treatment. She stated that it was sent a few days ago but they never received it. It was for medical clearance. Pls re send [phone] documented in this encounter Plan of Treatment Not on file documented as of this encounter Visit Diagnoses Not on filedocumented in this encounter
--- OUTSIDE RECORDS SUMMARY | 2024-11-01 06:15 | XMS_ITS | Encounter Summary ---
Author Organization [employer] Address [address] [facility] 7t [place] [address] Care Team Providers Care Car Dropper Name Role Phone Unavailable Primary Care Provider Unavailabl e Encounter Details Date Type Department Care Team (Latest Contact Info) Description 09/24/2021 Abstract [facility] CONVERSIONS Dental, Provider, DDS Social History Tobacco [...]
--- OUTSIDE RECORDS SUMMARY | 2024-11-01 06:15 | XMS_ITS | Clinical Summary ---
Author Organization [employer] Address [address] [facility] 7t [place] [address] Care Team Providers Care Chemist Assistant Name Role Phone Unavailable Primary Care Provider Unavailabl e Allergies Active Allergy Reactions Criticality Noted Date Comments Pollen Extract 11/22/2014 Medications Clopidogrel Bisulfate (PLAVIX PO) Take by mouth. 02/20/2017 Active acetaminophen (Tylenol 8 Hour) 650 MG ER tablet Take 650 mg by mouth every 8 (eight) hours if needed. 10/21/2022 Active atorvastatin (Lipitor) 20 MG tablet 10/24/2022 Active calcium citrate (Calcitrate) 950 (200 Ca) MG tablet Take 2 tablets by mouth in the morning. Active ezetimibe (Zetia) 10 MG tablet Take 10 mg by mouth in the morning. 08/06/2022 Active gabapentin (Neurontin) 100 MG capsule TAKE 1 CAPSULE BY MOUTH NIGHTLY AT BEDTIME. 07/04/2022 Active levothyroxine (Synthroid, Levoxyl) 175 MCG tablet Take 175 mcg by mouth in the morning. 08/28/2022 Active Social History Tobacco Use Types Packs/Day Years Used Date Smoking Tobacco: Never Smokeless Tobacco: Never Tobacco Cessation:Counseling Given: Not Answered Alcohol Use Standard Drinks/Week Comments Defer 0 (1 standard drink = 0.6 oz pur e alcohol) Comments Unknown Sex and Gender Information Value Date Recorded Sex Assigned at Female 04/22/2022 10:29 AM EDT Legal Sex Female 10:29 AM EDT Gender Identity Female 04/22/2022 10:29 AM EDT Sexual Orientation Straight 04/22/2022 10 :29 AM EDT Plan of Treatment Health Maintenance Due Date Last Done Comments CT Colonography 1955 Colonoscopy 1955 Colorectal Cancer Screening 1955 Dental Oral Exam 1955 Dental Prophylaxis 1955 Dental X-Ray: Full Mouth 1955 Depression Screening 1955 FIT DNA/Cologuard 1955 FIT 1955 FOBT 1955 Lipid Panel 1955 SDOH Screening 1955 Sigmoidoscopy 1955 Alcohol/Substance Use Screening 1967 Hepatitis C Screening 10/18/1973 RSV Patients and Patients Aged 60 years or older (1 - Risk 60-74 years 1-dose series) 2015 Mammogram 06/22/2020 06/22/2018, 05/23, 06/03/2017 Tobacco Screening 08/19/2023 08/19/2022 Dental X-Ray: Bitewings 08/20/2023 08/19/2022 COVID-19 Vaccine ( season) 2024 03/28/2022, 10/29/2021, 03/22/2021, Additional history exists Influenza Vaccine (#1) 2024 , 03/11/2021, 02/24/2020, Additional history exists DTaP/Tdap/Td Vaccines (3 - Td or Tdap) 03/23/2028 03/23/2018, 02/10/2009 Zoster Vaccines Completed 05/25/2019, 02/19/2019 Pneumococcal Vaccine: 50+ Years Completed 04/22/2022, 12/26/2016, 03/10/2014 HIB Vaccines Aged Out No longer eligi [...] patient's age to complete this topic Meningococcal Vaccine Aged Out No dot zurdo eligible based on patient's age to complete this topic RSV under 20 months Aged Out No longe r eligible based on patient's age to complete this topic Rotavirus Vaccines Aged Out No longer eligible based on patient's age to complete this topic Procedures Procedure Name Priority Date/Time Associated Diagnosis Comments BITEWING - SINGLE RADIOGRAPHIC IMAGE Routine 08/19/2022 3:00 PM EST BI MAMMOGRAM SCREENING BILATERAL Routine 06/22/2018 11:20 AM EST from Last 3 Months or Most Recently Relevant to Health Maintenance Results * 3D DIGITAL FREDA SCR MAMMO 1 (06/22/2018 11:20 AM EST) Anatomical Region Laterality Modality Breast Bilateral Mammography 06/22/2018 11:2 0 AM EST Narrative 06/22/2018 11:22 AM EST Refer to the Notes tab for result details Legacy Procedure: 3D DIGITAL FREDA SCR MAMMO 1 Procedure Note Provider, MD [place] - 09/14/2022 Refer to the Notes tab for result details Legacy Procedure: 3D DIGITAL FREDA SCR MAMMO 1 Nicholas Boyd MD IMG BI PROCEDURES Final Resul t from Last 3 Months or Most Recently Relevant to Health Maintenance Insurance [facility]AL-[facility] MEDICAID STAND ADULT
[2024-11-01 06:55] LABS: Basophils Absolute Auto 0.1 X10*3/uL (0.0-0.2); Basophils Percent Auto 0.8 % (0-2); Eosinophils Absolute Auto 0.3 X10*3/uL (0.0-0.4); Eosinophils Percent Auto 4.9 % (0-4); Hematocrit 28.5 % (37.0-47.0); Hemoglobin 8.4 g/dl (12.0-16.0); Imm Gran Abs Auto 0.02 X10*3/uL (0.00-0.03); Imm Gran Pct Auto 0.3 % (0.0-0.4); Lymphocytes Absolute Auto 2.2 X10*3/uL (1.2-4.9); Lymphocytes Percent Auto 37.1 % (20-40); Mean Corpuscular HGB Conc 29.5 g/dl (31.0-35.0); Mean Corpuscular Hemoglobin 25.5 pg (27.0-33.0); Mean Corpuscular Volume 86.6 fL (80.0-98.0); Mean Platelet Volume 11.4 fL (9.4-12.3); Monocytes Absolute Auto 0.6 X10*3/uL (0.1-1.2); Monocytes Percent Auto 10.4 % (2-11); Neutrophils Absolute Auto 2.8 x10*3/uL (2.0-8.3); Neutrophils Percent Auto 46.5 % (45-73); Platelet Count 295 X10*3/uL (160-400); Red Blood Count 3.29 X10*6/uL (4.20-5.50); Red Cell Distribution Width 17.2 % (11.0-16.0)
[2024-11-01 07:05] LABS: Anion Gap 11 (12-20); Blood Urea Nitrogen 36 mg/dL (9-16); Calcium 8.4 mg/dL (8.4-10.2); Carbon Dioxide 23 mmol/L (22-29); Chloride 110 mmol/L (96-108); Estimated Glomerular Filt Rate > 60; Glucose Random 71 mg/dL (60-115); Potassium 4.8 mmol/L (3.3-5.1); Sodium 139 mmol/L (135-145)
== END 2024-11-01 06:13 | disposition home or self-care (01) ==
LOC: HO.MMNH1L 06:12
PROVIDERS: Visit Provider Student in an Organized Health Care Education/Training Program
DX: D64.9 Anemia, unspecified (principal); I10 Essential (primary) hypertension; G70.00 Myasthenia gravis without (acute) exacerbation
CPT/HCPCS: 36415; 80048; 85025

== ENCOUNTER 2024-11-22 05:48 | Outpatient (REF) | payer MEDICARE, SELFPAY ==
[2024-11-22 05:44] LABS: MANUAL DIFF FLAG NO
--- OUTSIDE RECORDS SUMMARY | 2024-11-22 05:51 | XMS_ITS | Clinical Summary ---
Author Organization [facility] it Address [address] [place] [address] Care Team Providers Care Health Inspector Food Name Role Phone Unavailable Primary Care Provider Unavailabl e Immunizations Name Administration Dates Next Due Pfizer SARS-CoV-2 COVID-19, mRNA, LNP-S, preservative free 09/27/2020,09/02/2020 Surgical History Surgery Date Site/Laterality Comments NECK SURGERY PROCEDURE: HISTORICAL NECK SURGERY; COMMENT: spinal stenosis TONSILLECTOMY PROCEDURE: HISTORICAL TONSILLECTOMY CHOLECYSTECTOMY 12/1989 PROCEDURE: HISTORICAL CHOLECYSTECTOMY BREAST REDUCTION PROCEDURE: [place] BREAST REDUCTION ROBOTIC ASSISTED HYSTERECTOMY 05/31/14 PROCEDURE: [...]
[2024-11-22 06:47] LABS: Anion Gap 13 (12-20); Blood Urea Nitrogen 34 mg/dL (9-16); Calcium 8.7 mg/dL (8.4-10.2); Carbon Dioxide 23 mmol/L (22-29); Chloride 110 mmol/L (96-108); Estimated Glomerular Filt Rate > 60; Glucose Random 78 mg/dL (60-115); Potassium 5.1 mmol/L (3.3-5.1); Sodium 141 mmol/L (135-145)
[2024-11-22 06:55] LABS: Basophils Absolute Auto 0.1 X10*3/uL (0.0-0.2); Basophils Percent Auto 0.8 % (0-2); Eosinophils Absolute Auto 0.4 X10*3/uL (0.0-0.4); Eosinophils Percent Auto 4.8 % (0-4); Hematocrit 31.2 % (37.0-47.0); Hemoglobin 9.1 g/dl (12.0-16.0); Imm Gran Abs Auto 0.01 X10*3/uL (0.00-0.03); Imm Gran Pct Auto 0.1 % (0.0-0.4); Lymphocytes Absolute Auto 2.4 X10*3/uL (1.2-4.9); Mean Corpuscular HGB Conc 29.2 g/dl (31.0-35.0); Mean Corpuscular Hemoglobin 26.2 pg (27.0-33.0); Mean Corpuscular Volume 89.9 fL (80.0-98.0); Mean Platelet Volume 11.2 fL (9.4-12.3); Monocytes Absolute Auto 0.8 X10*3/uL (0.1-1.2); Monocytes Percent Auto 11.2 % (2-11); Neutrophils Absolute Auto 3.6 x10*3/uL (2.0-8.3); Neutrophils Percent Auto 50.1 % (45-73); Platelet Count 272 X10*3/uL (160-400); Red Blood Count 3.47 X10*6/uL (4.20-5.50); Red Cell Distribution Width 17.7 % (11.0-16.0); White Blood Count 7.2 X10*3/uL (4.8-10.8)
== END 2024-11-22 05:49 | disposition home or self-care (01) ==
LOC: HO.MMNH1L 05:48
PROVIDERS: Visit Provider Student in an Organized Health Care Education/Training Program
DX: D64.9 Anemia, unspecified (principal); I10 Essential (primary) hypertension; G70.00 Myasthenia gravis without (acute) exacerbation
CPT/HCPCS: 36415; 80048; 85025

== ENCOUNTER 2024-12-20 07:37 | Outpatient (REF) | payer MEDICARE, SELFPAY ==
[2024-12-20 06:32] LABS: MANUAL DIFF FLAG NO
[2024-12-20 06:57] LABS: Basophils Absolute Auto 0.1 X10*3/uL (0.0-0.2); Basophils Percent Auto 0.6 % (0-2); Eosinophils Absolute Auto 0.3 X10*3/uL (0.0-0.4); Hematocrit 33.1 % (37.0-47.0); Imm Gran Abs Auto 0.02 X10*3/uL (0.00-0.03); Imm Gran Pct Auto 0.2 % (0.0-0.4); Lymphocytes Absolute Auto 1.8 X10*3/uL (1.2-4.9); Lymphocytes Percent Auto 21.4 % (20-40); Mean Corpuscular HGB Conc 30.2 g/dl (31.0-35.0); Mean Corpuscular Hemoglobin 26.8 pg (27.0-33.0); Mean Corpuscular Volume 88.7 fL (80.0-98.0); Mean Platelet Volume 10.9 fL (9.4-12.3); Monocytes Percent Auto 11.5 % (2-11); Neutrophils Absolute Auto 5.3 x10*3/uL (2.0-8.3); Neutrophils Percent Auto 63.3 % (45-73); Platelet Count 264 X10*3/uL (160-400); Red Blood Count 3.73 X10*6/uL (4.20-5.50); Red Cell Distribution Width 17.2 % (11.0-16.0); White Blood Count 8.4 X10*3/uL (4.8-10.8)
[2024-12-20 07:19] LABS: Anion Gap 13 (12-20); Blood Urea Nitrogen 36 mg/dL (9-16); Calcium 8.7 mg/dL (8.4-10.2); Carbon Dioxide 21 mmol/L (22-29); Chloride 112 mmol/L (96-108); Estimated Glomerular Filt Rate > 60; Glucose Random 78 mg/dL (60-115); Potassium 4.9 mmol/L (3.3-5.1); Sodium 141 mmol/L (135-145)
--- OUTSIDE RECORDS SUMMARY | 2024-12-20 07:39 | XMS_ITS | Clinical Summary ---
Author Organization [facility] it Address [address] [place] [address] Care Team Providers Care Scalemaker Name Role Phone Unavailable Primary Care Provider Unavailabl e Immunizations Name Administration Dates Next Due Pfizer SARS-CoV-2 COVID-19, mRNA, LNP-S, preservative free 09/27/2020,09/02/2020 Surgical History Surgery Date Site/Laterality Comments NECK SURGERY PROCEDURE: HISTORICAL NECK SURGERY; COMMENT: spinal stenosis TONSILLECTOMY PROCEDURE: HISTORICAL TONSILLECTOMY CHOLECYSTECTOMY 12/1989 PROCEDURE: HISTORICAL CHOLECYSTECTOMY BREAST REDUCTION PROCEDURE: [place] BREAST REDUCTION ROBOTIC ASSISTED HYSTERECTOMY 05/31/14 PROCEDURE: [...]
== END 2024-12-20 07:38 | disposition home or self-care (01) ==
LOC: HO.MMNH1L 07:37
PROVIDERS: Visit Provider Student in an Organized Health Care Education/Training Program
DX: D64.9 Anemia, unspecified (principal); I10 Essential (primary) hypertension; G70.00 Myasthenia gravis without (acute) exacerbation
CPT/HCPCS: 36415; 80048; 85025

== ENCOUNTER 2024-12-28 05:35 | Outpatient (REF) | payer MEDICARE, SELFPAY ==
--- OUTSIDE RECORDS SUMMARY | 2024-12-28 05:37 | XMS_ITS | Clinical Summary ---
Author Organization [employer] Address [address] [facility] 7t [place] [address] Care Team Providers Care Medical Instructor Name Role Phone Unavailable Primary Care Provider [...] 03/22/2021, Additional history exists Influenza Vaccine (#1) 2025 , 03/11/2021, 02/24/2020, Additional history exists DTaP/Tdap/Td [...] Most Recently Relevant to Health Maintenance Insurance D[facility]AL-[facility] MEDICAID STAND ADULT
--- OUTSIDE RECORDS SUMMARY | 2024-12-28 05:37 | XMS_ITS | Clinical Summary ---
Author Organization [facility] it Address [address] [place] [address] Care Team Providers Care Roll Scale Man Name Role Phone Unavailable Primary Care Provider Unavailabl e Immunizations Name Administration Dates Next Due Pfizer SARS-CoV-2 COVID-19, mRNA, LNP-S, preservative free 09/27/2020,09/02/2020 Surgical History Surgery Date Site/Laterality Comments NECK SURGERY PROCEDURE: HISTORICAL NECK SURGERY; COMMENT: spinal stenosis TONSILLECTOMY PROCEDURE: HISTORICAL TONSILLECTOMY CHOLECYSTECTOMY 12/1989 PROCEDURE: HISTORICAL CHOLECYSTECTOMY BREAST REDUCTION PROCEDURE: [place] BREAST REDUCTION ROBOTIC ASSISTED HYSTERECTOMY 05/31/14 PROCEDURE: [...] 5 season) 2024 09/27/2020, 09/02/2020 Influenza Vaccine (#1) 2025 04/04/2014 RSV Immunization Adult Patients (1 [...]
--- OUTSIDE RECORDS SUMMARY | 2024-12-28 05:37 | XMS_ITS | Patient Health Record ---
Author Organization [address] [place] [address] [address] [facility] Address [address] [phone] Care Team Providers Care Developmental Mathematics Instructor Name Role Phone YULY Jin Ludivina [phone] Reason For Referral No Information Plan Of Treatment No Information
[2024-12-28 05:38] LABS: MANUAL DIFF FLAG NO
[2024-12-28 06:24] LABS: Hematocrit 31.2 % (37.0-47.0); Hemoglobin 9.7 g/dl (12.0-16.0); Imm Gran Abs Auto 0.03 X10*3/uL (0.00-0.03); Imm Gran Pct Auto 0.4 % (0.0-0.4); Lymphocytes Absolute Auto 2.1 X10*3/uL (1.2-4.9); Mean Corpuscular HGB Conc 31.1 g/dl (31.0-35.0); Mean Corpuscular Hemoglobin 26.8 pg (27.0-33.0); Mean Corpuscular Volume 86.2 fL (80.0-98.0); NRBC Abs Auto 0.000 X10*3/uL (0.0-0.012); NRBC Pct Auto 0.0 /100WBC (0.0-0.2); Platelet Count 315 X10*3/uL (160-400); Red Blood Count 3.62 X10*6/uL (4.20-5.50); White Blood Count 7.3 X10*3/uL (4.8-10.8)
[2024-12-28 06:25] LABS: Anion Gap 13 (12-20); Blood Urea Nitrogen 26 mg/dL (9-16); Calcium 9.0 mg/dL (8.4-10.2); Carbon Dioxide 26 mmol/L (22-29); Chloride 106 mmol/L (96-108); Estimated Glomerular Filt Rate 60; Potassium 4.7 mmol/L (3.3-5.1); Sodium 140 mmol/L (135-145)
== END 2024-12-28 05:36 | disposition home or self-care (01) ==
LOC: HO.MMNH3L 05:35
PROVIDERS: Visit Provider Student in an Organized Health Care Education/Training Program
DX: G70.00 Myasthenia gravis without (acute) exacerbation (principal); N18.31 Chronic kidney disease, stage 3a; I73.9 Peripheral vascular disease, unspecified; I25.9 Chronic ischemic heart disease, unspecified; E03.9 Hypothyroidism, unspecified; Z89.611 Acquired absence of right leg above knee
CPT/HCPCS: 36415; 80048; 85025

== ENCOUNTER 2025-01-03 06:51 | Outpatient (REF) | payer MEDICARE, SELFPAY ==
--- OUTSIDE RECORDS SUMMARY | 2025-01-03 06:53 | XMS_ITS | Clinical Summary ---
Author Organization [email or web address] Address [address] [facility] 7t [place] [address] Care Team Providers Care Co Founder And Director Name Role Phone Unavailable Primary Care Provider [...] Most Recently Relevant to Health Maintenance Insurance [facility]AL-[facility] MEDICAID STAND ADULT
--- OUTSIDE RECORDS SUMMARY | 2025-01-03 06:53 | XMS_ITS | Clinical Summary ---
Author Organization [facility] it Address [address] [place] [address] Care Team Providers Care Retail Performance Specialist Name Role Phone Unavailable Primary Care Provider Unavailabl e Immunizations Name Administration Dates Next Due Pfizer SARS-CoV-2 COVID-19, mRNA, LNP-S, preservative free 09/27/2020,09/02/2020 Surgical History Surgery Date Site/Laterality Comments NECK SURGERY PROCEDURE: HISTORICAL NECK SURGERY; COMMENT: spinal stenosis TONSILLECTOMY PROCEDURE: HISTORICAL TONSILLECTOMY CHOLECYSTECTOMY 12/1989 PROCEDURE: HISTORICAL CHOLECYSTECTOMY BREAST REDUCTION PROCEDURE: [place] BREAST REDUCTION ROBOTIC ASSISTED HYSTERECTOMY 05/31/14 PROCEDURE: [...]
--- OUTSIDE RECORDS SUMMARY | 2025-01-03 06:53 | XMS_ITS | Patient Health Record ---
Author Organization [address] [place] [address] [address] [facility] Address [address] [id number] Care Team Providers Care Algebra Teacher Name Role Phone YULY Jin Ludivina [phone] Reason For Referral No Information Plan Of Treatment No Information
[2025-01-03 06:54] LABS: MANUAL DIFF FLAG NO
[2025-01-03 07:18] LABS: Hematocrit 28.8 % (37.0-47.0); Hemoglobin 9.1 g/dl (12.0-16.0); Imm Gran Abs Auto 0.01 X10*3/uL (0.00-0.03); Imm Gran Pct Auto 0.1 % (0.0-0.4); Lymphocytes Absolute Auto 1.5 X10*3/uL (1.2-4.9); Mean Corpuscular HGB Conc 31.6 g/dl (31.0-35.0); Mean Corpuscular Hemoglobin 27.3 pg (27.0-33.0); Mean Corpuscular Volume 86.5 fL (80.0-98.0); NRBC Abs Auto 0.000 X10*3/uL (0.0-0.012); NRBC Pct Auto 0.0 /100WBC (0.0-0.2); Platelet Count 288 X10*3/uL (160-400); Red Blood Count 3.33 X10*6/uL (4.20-5.50); White Blood Count 7.3 X10*3/uL (4.8-10.8)
[2025-01-03 07:54] LABS: Anion Gap 13 (12-20); Blood Urea Nitrogen 37 mg/dL (9-16); Calcium 8.5 mg/dL (8.4-10.2); Carbon Dioxide 22 mmol/L (22-29); Chloride 110 mmol/L (96-108); Estimated Glomerular Filt Rate 35; Potassium 5.0 mmol/L (3.3-5.1); Sodium 140 mmol/L (135-145)
== END 2025-01-03 06:52 | disposition home or self-care (01) ==
LOC: HO.MMNH3L 06:51
PROVIDERS: Visit Provider Student in an Organized Health Care Education/Training Program
DX: I69.398 Other sequelae of cerebral infarction (principal); I25.9 Chronic ischemic heart disease, unspecified; E03.9 Hypothyroidism, unspecified; Z89.611 Acquired absence of right leg above knee
CPT/HCPCS: 36415; 80048; 85025

== ENCOUNTER 2025-01-06 06:05 | Outpatient (REF) | payer MEDICARE, SELFPAY ==
--- OUTSIDE RECORDS SUMMARY | 2025-01-06 06:07 | XMS_ITS | Clinical Summary ---
Author Organization [employer] Address [address] [facility] 7t [place] [address] Care Team Providers Care Coater Helper Name Role Phone Unavailable Primary Care [...] Most Recently Relevant to Health Maintenance Insurance DENTAL-[facility] MEDICAID STAND ADULT
--- OUTSIDE RECORDS SUMMARY | 2025-01-06 06:07 | XMS_ITS | Clinical Summary ---
Author Organization [facility] it Address [address] [place] [address] Care Team Providers Care Active Directory Administrator Name Role Phone Unavailable Primary Care Provider Unavailabl e Immunizations Name Administration Dates Next Due Pfizer SARS-CoV-2 COVID-19, mRNA, LNP-S, preservative free 09/27/2020,09/02/2020 Surgical History Surgery Date Site/Laterality Comments NECK SURGERY PROCEDURE: HISTORICAL NECK SURGERY; COMMENT: spinal stenosis TONSILLECTOMY PROCEDURE: HISTORICAL TONSILLECTOMY CHOLECYSTECTOMY 12/1989 PROCEDURE: HISTORICAL CHOLECYSTECTOMY BREAST REDUCTION PROCEDURE: [place] BREAST REDUCTION ROBOTIC ASSISTED HYSTERECTOMY 05/31/14 PROCEDURE: [...]
--- OUTSIDE RECORDS SUMMARY | 2025-01-06 06:07 | XMS_ITS | Patient Health Record ---
Author Organization [address] [place] [address] 89[address] [facility] Address [address] [phone] Care Team Providers Care Trailer Park Manager Name Role Phone YULY Jin Ludivina [phone] Reason For Referral No Information Plan Of Treatment No Information
[2025-01-06 06:46] LABS: Alanine Aminotransferase 9 U/L (0-31); Albumin Level 3.2 g/dL (3.5-5.0); Alkaline Phosphatase 42 U/L (39-117); Anion Gap 14 (12-20); Aspartate Amino Transferase 17 U/L (5-31); Blood Urea Nitrogen 37 mg/dL (9-16); Calcium 8.5 mg/dL (8.4-10.2); Carbon Dioxide 23 mmol/L (22-29); Chloride 108 mmol/L (96-108); Cholesterol 107 mg/dL (<200); Estimated Glomerular Filt Rate 42; HDL Cholesterol 42 mg/dL (>40); Potassium 4.6 mmol/L (3.3-5.1); Sodium 140 mmol/L (135-145); Total Protein 6.1 g/dL (6.5-8.0); Triglycerides 40 mg/dL (<150)
== END 2025-01-06 06:06 | disposition home or self-care (01) ==
LOC: HO.MMNH3L 06:05
PROVIDERS: Visit Provider Student in an Organized Health Care Education/Training Program
DX: F19.90 Other psychoactive substance use, unspecified, uncomplicated (principal)
CPT/HCPCS: 36415; 80053; 80061

== ENCOUNTER 2025-01-10 06:02 | Outpatient (REF) | payer MEDICARE, SELFPAY ==
[2025-01-10 05:53] LABS: MANUAL DIFF FLAG NO
--- OUTSIDE RECORDS SUMMARY | 2025-01-10 06:06 | XMS_ITS | Patient Health Record ---
Author Organization [address] [place] [address] [facility] Address [address] [id number] Care Team Providers Care Water Reuse Program Manager Name Role Phone YULY Jin Ludivina [phone] Reason For Referral No Information Plan Of Treatment No Information
--- OUTSIDE RECORDS SUMMARY | 2025-01-10 06:06 | XMS_ITS | Clinical Summary ---
Author Organization [employer] Address [address] [facility] 7t [place] [address] Care Team Providers Care Neurosurgery Physician Name Role Phone Unavailable Primary Care Provider [...] Most Recently Relevant to Health Maintenance Insurance DENTAL-[facility] MEDICAID STAND ADULT
--- OUTSIDE RECORDS SUMMARY | 2025-01-10 06:06 | XMS_ITS | Clinical Summary ---
Author Organization [facility] it Address [address] [place] [address] Care Team Providers Care Co Chairman Name Role Phone Unavailable Primary Care Provider Unavailabl e Immunizations Name Administration Dates Next Due Pfizer SARS-CoV-2 COVID-19, mRNA, LNP-S, preservative free 09/27/2020,09/02/2020 Surgical History Surgery Date Site/Laterality Comments NECK SURGERY PROCEDURE: HISTORICAL NECK SURGERY; COMMENT: spinal stenosis TONSILLECTOMY PROCEDURE: HISTORICAL TONSILLECTOMY CHOLECYSTECTOMY 12/1989 PROCEDURE: HISTORICAL CHOLECYSTECTOMY BREAST REDUCTION PROCEDURE: [place] BREAST REDUCTION ROBOTIC ASSISTED HYSTERECTOMY 05/31/14 PROCEDURE: [...] - 2023-2 5 season) 2024 09/27/2020, 09/02/2020 Depression Screening 06/23/2024 Influenza Vaccine (#1) 2025 04/04/2014 RSV Immunization [...]
[2025-01-10 07:05] LABS: Hematocrit 27.3 % (37.0-47.0); Hemoglobin 8.5 g/dl (12.0-16.0); Imm Gran Abs Auto 0.02 X10*3/uL (0.00-0.03); Imm Gran Pct Auto 0.2 % (0.0-0.4); Lymphocytes Absolute Auto 1.5 X10*3/uL (1.2-4.9); Mean Corpuscular HGB Conc 31.1 g/dl (31.0-35.0); Mean Corpuscular Hemoglobin 26.7 pg (27.0-33.0); Mean Corpuscular Volume 85.8 fL (80.0-98.0); NRBC Abs Auto 0.000 X10*3/uL (0.0-0.012); NRBC Pct Auto 0.0 /100WBC (0.0-0.2); Platelet Count 342 X10*3/uL (160-400); Red Blood Count 3.18 X10*6/uL (4.20-5.50); White Blood Count 8.8 X10*3/uL (4.8-10.8)
[2025-01-10 07:07] LABS: Anion Gap 14 (12-20); Blood Urea Nitrogen 38 mg/dL (9-16); Calcium 8.2 mg/dL (8.4-10.2); Carbon Dioxide 22 mmol/L (22-29); Chloride 110 mmol/L (96-108); Estimated Glomerular Filt Rate 43; Potassium 4.9 mmol/L (3.3-5.1); Sodium 141 mmol/L (135-145)
== END 2025-01-10 06:03 | disposition home or self-care (01) ==
LOC: HO.MMNH3L 06:02
PROVIDERS: Visit Provider Student in an Organized Health Care Education/Training Program
DX: I25.9 Chronic ischemic heart disease, unspecified (principal); I69.398 Other sequelae of cerebral infarction; E03.9 Hypothyroidism, unspecified; Z89.611 Acquired absence of right leg above knee
CPT/HCPCS: 36415; 80048; 85025

== ENCOUNTER 2025-01-17 06:11 | Outpatient (REF) | payer MEDICARE, SELFPAY ==
[2025-01-17 05:52] LABS: MANUAL DIFF FLAG NO
--- OUTSIDE RECORDS SUMMARY | 2025-01-17 06:13 | XMS_ITS | Clinical Summary ---
Author Organization [employer] Address [address] [facility] 7t [place] [address] Care Team Providers Care Therapist Respiratory Name Role Phone Unavailable Primary Care Provider [...] Most Recently Relevant to Health Maintenance Insurance DENTAL-[facility] MEDICAID STAND ADULT
--- OUTSIDE RECORDS SUMMARY | 2025-01-17 06:13 | XMS_ITS | Clinical Summary ---
Author Organization [facility] it Address [address] [place] [address] Care Team Providers Care Relief Cook Name Role Phone Unavailable Primary Care Provider Unavailabl e Immunizations Name Administration Dates Next Due Pfizer SARS-CoV-2 COVID-19, mRNA, LNP-S, preservative free 09/27/2020,09/02/2020 Surgical History Surgery Date Site/Laterality Comments NECK SURGERY PROCEDURE: HISTORICAL NECK SURGERY; COMMENT: spinal stenosis TONSILLECTOMY PROCEDURE: HISTORICAL TONSILLECTOMY CHOLECYSTECTOMY 12/1989 PROCEDURE: HISTORICAL CHOLECYSTECTOMY BREAST REDUCTION PROCEDURE: [place] BREAST REDUCTION ROBOTIC ASSISTED HYSTERECTOMY 05/31/14 PROCEDURE: [...]
--- OUTSIDE RECORDS SUMMARY | 2025-01-17 06:13 | XMS_ITS | Patient Health Record ---
Author Organization [address] [place] [address] 89[address] [facility] Address [address] [id number] Care Team Providers Care Family Service Caseworker Name Role Phone YULY Jin Ludivina [phone] Reason For Referral No Information Plan Of Treatment No Information
[2025-01-17 06:21] LABS: Anion Gap 12 (12-20); Blood Urea Nitrogen 34 mg/dL (9-16); Calcium 8.7 mg/dL (8.4-10.2); Carbon Dioxide 25 mmol/L (22-29); Chloride 109 mmol/L (96-108); Estimated Glomerular Filt Rate 45; Potassium 5.0 mmol/L (3.3-5.1); Sodium 141 mmol/L (135-145)
[2025-01-17 06:32] LABS: Hematocrit 31.2 % (37.0-47.0); Hemoglobin 9.7 g/dl (12.0-16.0); Imm Gran Abs Auto 0.03 X10*3/uL (0.00-0.03); Imm Gran Pct Auto 0.4 % (0.0-0.4); Lymphocytes Absolute Auto 2.0 X10*3/uL (1.2-4.9); Mean Corpuscular HGB Conc 31.1 g/dl (31.0-35.0); Mean Corpuscular Hemoglobin 26.6 pg (27.0-33.0); Mean Corpuscular Volume 85.7 fL (80.0-98.0); NRBC Abs Auto 0.000 X10*3/uL (0.0-0.012); NRBC Pct Auto 0.0 /100WBC (0.0-0.2); Platelet Count 336 X10*3/uL (160-400); Red Blood Count 3.64 X10*6/uL (4.20-5.50); White Blood Count 8.4 X10*3/uL (4.8-10.8)
== END 2025-01-17 06:12 | disposition home or self-care (01) ==
LOC: HO.MMNH3L 06:11
PROVIDERS: Visit Provider Student in an Organized Health Care Education/Training Program
DX: I69.398 Other sequelae of cerebral infarction (principal); I25.9 Chronic ischemic heart disease, unspecified; E03.9 Hypothyroidism, unspecified; Z89.611 Acquired absence of right leg above knee
CPT/HCPCS: 36415; 80048; 85025

== ENCOUNTER 2025-01-24 06:55 | Outpatient (REF) | payer MEDICARE, SELFPAY ==
[2025-01-24 06:11] LABS: MANUAL DIFF FLAG NO
--- OUTSIDE RECORDS SUMMARY | 2025-01-24 06:56 | XMS_ITS | Patient Health Record ---
Author Organization [address] [place] [address] [address] [facility] Address [address] [phone] Care Team Providers Care Asphalt Paving Supervisor Name Role Phone YULY Jin Ludivina [phone] Reason For Referral No Information Plan Of Treatment No Information
--- OUTSIDE RECORDS SUMMARY | 2025-01-24 06:56 | XMS_ITS | Clinical Summary ---
Author Organization [facility] it Address [address] [place] [address] Care Team Providers Care Telecommunication Tower Technician Name Role Phone Unavailable Primary Care Provider Unavailabl e Immunizations Name Administration Dates Next Due Pfizer SARS-CoV-2 COVID-19, mRNA, LNP-S, preservative free 09/27/2020,09/02/2020 Surgical History Surgery Date Site/Laterality Comments NECK SURGERY PROCEDURE: HISTORICAL NECK SURGERY; COMMENT: spinal stenosis TONSILLECTOMY PROCEDURE: HISTORICAL TONSILLECTOMY CHOLECYSTECTOMY 12/1989 PROCEDURE: HISTORICAL CHOLECYSTECTOMY BREAST REDUCTION PROCEDURE: NM BREAST REDUCTION ROBOTIC ASSISTED HYSTERECTOMY 05/31/14 PROCEDURE: [...]
--- OUTSIDE RECORDS SUMMARY | 2025-01-24 06:56 | XMS_ITS | Clinical Summary ---
Author Organization [employer] Address [address] [facility] [address] [place] [address] Care Team Providers Care Parachute Marker Name Role Phone Unavailable Primary Care Provider [...] Most Recently Relevant to Health Maintenance Insurance [facility] MEDICAID STAND ADULT
[2025-01-24 07:02] LABS: Hematocrit 25.5 % (37.0-47.0); Hemoglobin 7.9 g/dl (12.0-16.0); Imm Gran Abs Auto 0.02 X10*3/uL (0.00-0.03); Imm Gran Pct Auto 0.3 % (0.0-0.4); Lymphocytes Absolute Auto 1.6 X10*3/uL (1.2-4.9); Mean Corpuscular HGB Conc 31.0 g/dl (31.0-35.0); Mean Corpuscular Hemoglobin 26.5 pg (27.0-33.0); Mean Corpuscular Volume 85.6 fL (80.0-98.0); NRBC Abs Auto 0.000 X10*3/uL (0.0-0.012); NRBC Pct Auto 0.0 /100WBC (0.0-0.2); Platelet Count 256 X10*3/uL (160-400); Red Blood Count 2.98 X10*6/uL (4.20-5.50); White Blood Count 6.2 X10*3/uL (4.8-10.8)
[2025-01-24 07:18] LABS: Anion Gap 12 (12-20); Blood Urea Nitrogen 48 mg/dL (9-16); Calcium 8.0 mg/dL (8.4-10.2); Carbon Dioxide 19 mmol/L (22-29); Chloride 113 mmol/L (96-108); Estimated Glomerular Filt Rate 34; Potassium 4.9 mmol/L (3.3-5.1); Sodium 139 mmol/L (135-145)
== END 2025-01-24 06:56 | disposition home or self-care (01) ==
LOC: HO.MMNH3L 06:55
PROVIDERS: Visit Provider Student in an Organized Health Care Education/Training Program
DX: I69.398 Other sequelae of cerebral infarction (principal); I25.9 Chronic ischemic heart disease, unspecified; E03.9 Hypothyroidism, unspecified; Z89.611 Acquired absence of right leg above knee
CPT/HCPCS: 36415; 80048; 85025

== ENCOUNTER 2025-01-31 06:35 | Outpatient (REF) | payer MEDICARE, SELFPAY ==
[2025-01-31 06:29] LABS: MANUAL DIFF FLAG NO
--- OUTSIDE RECORDS SUMMARY | 2025-01-31 06:37 | XMS_ITS | Clinical Summary ---
Author Organization [address] Address [address] [place] [id number] Care Team Providers Care Rigger Name Role Phone Unavailable Primary Care Provider Unavailabl e Social History Tobacco Use Types Packs/Day Years Used Date Smoking Tobacco: Never Assessed Comments Unknown Sex and Gender Information Value Date Recorded Sex Assigned at Not on file Legal Sex Female 11:32 AM EST Gender Identity Not on file Sexual Orientation Not on file Plan of Treatment Health Maintenance Due Date Last Done Comments HIV screening 10/18/1968 Hepatitis C screening 10/18/1973 Tetanus adult (Td q 10,TDAP once) 1975 Breast cancer screening 1995 Lipid disorder screening 1995 Colon cancer screening, Colonoscopy 10/18/2000 Diabetes screening 10/18/2000 Pneumococcal Vaccine (50+ ye ars) (1 of 1 - PCV) 10/18/2005 Shingles vaccine (Shingrix) (1 of 2 - Shingrix (RZV) 2 Dose Standard Series) 10/18/2005 Osteoporosis screening (bone density) 10/18/2020 Covid-19 vaccine series ( - 2023-25 season) 2024 Influenza vaccine 02/21/2025 RSV Immunization (1 - 1-dose 75+ series) 10/18/2030 Cervical cancer screening Discontinued Meningococcal Vaccine Aged Out No dot zurdo eligible based on patient's age to complete this topic
--- OUTSIDE RECORDS SUMMARY | 2025-01-31 06:37 | XMS_ITS | Clinical Summary ---
Author Organization [employer] Address [address] [facility] [address] [place] [address] Care Team Providers Care Peoplesoft Financials Consultant Name Role Phone Unavailable Primary Care Provider [...] Most Recently Relevant to Health Maintenance Insurance [facility] MEDICAID STAND ADULT
--- OUTSIDE RECORDS SUMMARY | 2025-01-31 06:37 | XMS_ITS | Encounter Summary ---
Author Organization [facility] Address [address] [place] [address] Phone Care Team Providers Care Conservation Technician Name Role Phone Nadine Key MD Primary Care Provider [phone] Sharon Allen MD Unavailable Laurent Hannah MD Unavailable [phone] Socorro Lester MD Unavailable Rafita Trotter MD Unavailable + Nadine Key MD Unavailable Gaby Kamara OT Unavailable Gaby Kamara OT Unavailable [phone] Eli Inman RN Unavailable [phone] Encounter Details Date Type Department Care Team (Late st Contact Info) Description 01/30/2023 Procedure Pass [facility], [facility] [address] [place] [address] Social History Tobacco Use Types Packs/Day Years Used Date Smoking Tobacco: Never Smokeless Tobacco: Never Alcohol Use Standard Drinks/Week Comments Yes 2 (1 standard drink = 0.6 oz pur e alcohol) Child or Family Care Answer Date Record ed Do you have problems with on e of the following making it difficult for you to work, study, or receive health care? No 04/22/2022 Education Answer Date Recorded Are you interested in help w ith more adult education (for example, completing high school, GED, job training, learning the Korean language, technical skills, or developing parenting skills)? No 04/22/2022 Food Answer Date Recorded Within the past 6 months we worried whether our food would run out before we got money to buy more. Sometimes True 022 Within the past 6 months the food we bought just didn't last and we didn't have enough money to get more. Never True 03/25 Residential Stability Answer Date Recor ded What is your housing situation today? I have jolene sing 04/22/2022 How many times have you move d in the past 12 months? Zero (I did not move) 04/22/2022 Paying for Meds Answer Date Recorded Do you have trouble paying for medicines? No 04/22/2022 Paying Utility Bills Answer Date Record ed Do you have trouble paying your heating or elect ricity bill? No 04/22/2022 Transportation Answer Date Recorded Has the lack of transportati on kept you from medical appointments or from getting medications? No 04/22/2022 Unemployment Answer Date Recorded Are you currently unemployed or working on a part-time or temporary basis, and looking for work? No 04/22/2022 Digital Access Answer Date Recorded No 11/12/2022 No 11/12/2022 Reliable internet access at home? Not on file 11/12/2022 Device with a working camera? Not on file Comments No Sex and Gender Information Value Date Recorded Sex Assigned at Female 01/29/2023 5:37 PM EDT Legal Sex Female 7:51 PM EST Gender Identity Female 01/29/2023 5:37 PM EDT Sexual Orientation Not on file documented as of this encounter Functional Status * Calculated C-SSRS Risk Score (Lifetime/Recent) Answer Date of Assessment Author No Risk Indicated 01/30/2023 1:06 AM Alissa Yung, ALYX * [place] Suicide Severity Rating Scale (Screener/Recent Self-Report) Question Answer Date of Assessment Author 1. Wish to be (Past 1 Month) No 023 1:06 AM Alissa Yung, ALYX 2. Non-Specific Active Suici john Thoughts (Past 1 Month) No 01/30/2023 1:06 AM EDT López Harper RN 6. Suicidal Behavior (Lifetime) No 3 1:06 AM EDT Alissa Harper RN documented as of this encounter Plan of Treatment Not on file documented as of this encounter Visit Diagnoses Not on filedocumented in this encounter Additional Health Concerns Assessment Noted Time PHQ-2 Depression Total Score: 0 04/17/20 21 11:07 AM EDT documented as of this encounter Care Teams Conservation Technician Relationship Specialty Start Date End Date Nadine Key MD [address] [facility] [address] [place] [address] PCP - General Family Medicine 04/29/19 Sharon Allen MD [address] [place] [id number] Neurology 05/28/19 Laurent Hannah MD [address] [place] [address] [address] [place] [address] Cardiology 05/28/19 Socorro Lester MD [address] [place] [address] [address] [place] [id number] [email or web address] Orthopedic Surgery 05/28/19 Rafita Trotter MD [address] [place] [id number] Infectious Diseases 05/28/19 Nadine Key MD [address] [facility] [address] [place] [address] [email or web address] Insurance Assigned Provider 09/27/23 06/28/24 Gaby Kamara, OT [address] [place] [address] [email or web address] Transitions Communicable Disease SpecialistOffice Systems Technology Instructor Therapy 01/31/23 02/02/23 Gaby Kamara, OT [address] [place] [address] [email or web address] Transitions Communicable Disease SpecialistOffice Systems Technology Instructor Therapy 02/19/23 02/20/23 Eli Inman, ALYX [address] [place] [address] [email or web address] 08/07/23 09/04/23 documented as of this encounter Additional Source Comments The information contained in this document represents components of the legal health record. It is not the complete legal health record.[facility]
--- OUTSIDE RECORDS SUMMARY | 2025-01-31 06:37 | XMS_ITS | Clinical Summary ---
Author Organization [facility] it Address [address] [place] [address] Care Team Providers Care Tc Operator Name Role Phone Unavailable Primary Care Provider [...]
--- OUTSIDE RECORDS SUMMARY | 2025-01-31 06:37 | XMS_ITS | Patient Health Record ---
Author Organization [address] [place] [address] [address] [facility] Address [address] [id number] Care Team Providers Care Junior Staff Accountant Name Role Phone YULY Jin Ludivina [phone] Reason For Referral No Information Plan Of Treatment No Information
[2025-01-31 07:06] LABS: Hematocrit 27.5 % (37.0-47.0); Hemoglobin 8.4 g/dl (12.0-16.0); Imm Gran Abs Auto 0.05 X10*3/uL (0.00-0.03); Imm Gran Pct Auto 0.5 % (0.0-0.4); Lymphocytes Absolute Auto 1.6 X10*3/uL (1.2-4.9); Mean Corpuscular HGB Conc 30.5 g/dl (31.0-35.0); Mean Corpuscular Hemoglobin 26.2 pg (27.0-33.0); Mean Corpuscular Volume 85.7 fL (80.0-98.0); NRBC Abs Auto 0.000 X10*3/uL (0.0-0.012); NRBC Pct Auto 0.0 /100WBC (0.0-0.2); Platelet Count 356 X10*3/uL (160-400); Red Blood Count 3.21 X10*6/uL (4.20-5.50); White Blood Count 9.8 X10*3/uL (4.8-10.8)
[2025-01-31 07:22] LABS: Anion Gap 12 (12-20); Blood Urea Nitrogen 30 mg/dL (9-16); Calcium 8.3 mg/dL (8.4-10.2); Carbon Dioxide 23 mmol/L (22-29); Chloride 111 mmol/L (96-108); Estimated Glomerular Filt Rate > 60; Potassium 4.7 mmol/L (3.3-5.1); Sodium 141 mmol/L (135-145)
== END 2025-01-31 06:36 | disposition home or self-care (01) ==
LOC: HO.MMNH3L 06:35
PROVIDERS: Visit Provider Student in an Organized Health Care Education/Training Program
DX: I25.9 Chronic ischemic heart disease, unspecified (principal); I69.398 Other sequelae of cerebral infarction; E03.9 Hypothyroidism, unspecified; Z89.611 Acquired absence of right leg above knee
CPT/HCPCS: 36415; 80048; 85025

== ENCOUNTER 2025-02-07 06:09 | Outpatient (REF) | payer MEDICARE, SELFPAY ==
[2025-02-07 06:47] LABS: Hematocrit 30.1 % (37.0-47.0); Hemoglobin 9.2 g/dl (12.0-16.0); Imm Gran Abs Auto 0.04 X10*3/uL (0.00-0.03); Imm Gran Pct Auto 0.4 % (0.0-0.4); Lymphocytes Absolute Auto 2.0 X10*3/uL (1.2-4.9); MANUAL DIFF FLAG SCAN; Mean Corpuscular HGB Conc 30.6 g/dl (31.0-35.0); Mean Corpuscular Hemoglobin 26.3 pg (27.0-33.0); Mean Corpuscular Volume 86.0 fL (80.0-98.0); NRBC Abs Auto 0.000 X10*3/uL (0.0-0.012); NRBC Pct Auto 0.0 /100WBC (0.0-0.2); Platelet Count 350 X10*3/uL (160-400); Red Blood Count 3.50 X10*6/uL (4.20-5.50); SCAN SMEAR FLAG 1; White Blood Count 10.8 X10*3/uL (4.8-10.8)
[2025-02-07 07:10] LABS: Anion Gap 13 (12-20); Blood Urea Nitrogen 36 mg/dL (9-16); Calcium 8.1 mg/dL (8.4-10.2); Carbon Dioxide 24 mmol/L (22-29); Chloride 108 mmol/L (96-108); Estimated Glomerular Filt Rate 48; Potassium 5.8 mmol/L (3.3-5.1); Sodium 139 mmol/L (135-145)
== END 2025-02-07 06:10 | disposition home or self-care (01) ==
LOC: HO.MMNH3L 06:09
PROVIDERS: Visit Provider Student in an Organized Health Care Education/Training Program
DX: L89.611 Pressure ulcer of right heel, stage 1 (principal); I25.9 Chronic ischemic heart disease, unspecified; I69.398 Other sequelae of cerebral infarction; F03.90 Unspecified dementia, unspecified severity, without behavioral disturbance, psychotic disturbance, mood disturbance, and anxiety
CPT/HCPCS: 36415; 80048; 85025

== ENCOUNTER 2025-03-21 06:33 | Outpatient (REF) | payer MEDICARE, SELFPAY ==
[2025-03-21 06:11] LABS: MANUAL DIFF FLAG NO
--- OUTSIDE RECORDS SUMMARY | 2025-03-21 06:42 | XMS_ITS | Patient Health Record ---
Author Organization [address] [place] [address] [facility] Address [address] [id number] Care Team Providers Care Agricultural Produce Sorter Name Role Phone YULY Jin Ludivina [phone] Reason For Referral No Information Plan Of Treatment No Information
--- OUTSIDE RECORDS SUMMARY | 2025-03-21 06:42 | XMS_ITS | Data Portability ---
Author Organization [facility], Main Office Address [address] [address] [address] [place] [address] Care Team Providers [employer] Name Role Phone ELIZABETH CORNEJO 1ST FLOOR OTHER MARLO BRUCE Primary Care Provider Assessment Encounter Date Assessment Date Assessment LastModified by Organization Details LastModified Time 03/08/2024 03/08/2024 Labs 12/21: Na 141-K 5.2-Bun 34-C r 0.7-wbc 8.7-hgb 10.2-hct 32.7-plt 237- Labs 12/28: Na 141-K 4.4-Bun 25-Cr 0.6-wbc 7.6-hgb 9.8-hct 30.8-plt 221- Labs 01/04: reordered for 01/06 not completed today. Labs 01/12/24: wbc 7.7, hgb 9, plt. 286. Na 138, K 4.1, Bun 21, Cr. 0.69, glu 69. labs 01/18: : wbc 5.6-hgb 9.4-hct 29.5-plt 293-Na 139--K 4.0-Bun 15-Cr 0.6 GFR >60 Labs 01/25: Na 136-K 4.8-Bun 28- Cr 0.6-wbc 6.6-hbg 9.8-hct 30.0-plt 242 Labs 01/29 wbc 10.1-hgb 8.7-hct 27.8-plt 268 Labs 02/01: Na 138-K 4.3-Bun 25-Cr 0.6wbc 7.8-hgb 6.0-hct 18.6-plt 280- Iron 26-TIBC 195-% sat 13 hosp lab 02/03-02/05: na 140 k 4.5, bun 22, cr 0.82, wbc 9.2, hgb 8.3, hct 25.6, plt 298, ferritin 69, iron 201, tibc 238, % iron sat 84%, mag 1.9 Labs 02/08: Na 139-K 3.9-Bun 33-Cr 0.8-gfr >60-wbc7.1-hg b 7.5-hct 23.6-plt 299 Labs 02/15: Na 139-K 4.2-Bun 22- Cr 0.6-hgb 8.0-hct 25.4-plt 293 Labs 02/23: Na 137-K 4.8-Bun 27- Cr 0.7-hgb 9.0-hct 28.6-plt 312 Labs 03/08: Na 140-k 4.1-bun 24- Cr 0.7-wbc 5.8-hgb 8.0-hct 25.6-plt 242 Not available 03/08/2024 14:38:34 03/15/2024 03/15/2024 Labs 02/23: Na 137-K 4.8-Bun 27- Cr 0.7-hgb 9.0-hct 28.6-plt 312 Labs 03/08: Na 140-k 4.1-bun 24- Cr 0.7-wbc 5.8-hgb 8.0-hct 25.6-plt 242 Labs 03/15:Na 14K 4.4- Bun 26- Cr 0.6-wbc 6.4-hgb 8.2-ct 26.7-plt 228 Not available 03/15/2024 11:39:55 03/18/2024 03/18/2024 Labs 02/23: Na 137-K 4.8-Bun 27- Cr 0.7-hgb 9.0-hct 28.6-plt 312 Labs 03/08: Na 140-k 4.1-bun 24- Cr 0.7-wbc 5.8-hgb 8.0-hct 25.6-plt 242 Labs 03/15:Na 14K 4.4- Bun 26- Cr 0.6-wbc 6.4-hgb 8.2-ct 26.7-plt 228 Not available 03/18/2024 16:02:06 03/23/2024 03/23/2024 Labs 02/23: Na 137-K 4.8-Bun 27- Cr 0.7-hgb 9.0-hct 28.6-plt 312 Labs 03/08: Na 140-k 4.1-bun 24- Cr 0.7-wbc 5.8-hgb 8.0-hct 25.6-plt 242 Labs 03/15:Na 14K 4.4- Bun 26- Cr 0.6-wbc 6.4-hgb 8.2-ct 26.7-plt 228 Labs 03/22: Na 142- K 4.1-Bun 24- Cr 0.7 -wbc 6.7-hgb 7.9-hct 25.6-plt 279 Not available 03/23/2024 15:18:50 03/29/2024 03/29/2024 Labs 02/23: Na 137-K 4.8-Bun 27- Cr 0.7-hgb 9.0-hct 28.6-plt 312 Labs 03/08: Na 140-k 4.1-bun 24- Cr 0.7-wbc 5.8-hgb 8.0-hct 25.6-plt 242 Labs 03/15:Na 14K 4.4- Bun 26- Cr 0.6-wbc 6.4-hgb 8.2-ct 26.7-plt 228 Labs 03/22: Na 142- K 4.1-Bun 24- Cr 0.7 -wbc 6.7-hgb 7.9-hct 25.6-plt 279 Labs 03/29: Na 142-K 4.4-Bun 28- Cr 0.7- wbc 6.1-hgb 8.0-hct 26.3-plt 268 Not available 03/29/2024 13:18:45 Plan of Treatment Reminders Order Date Submit Date Provider Last Modified By Organization Details Last Modified Time Details Appointments None record ed. Lab None record ed. Referral None record ed. Procedures None record ed. Surgeries None record ed. Imaging None record ed. Medication Orders None record ed. Patient TargetsNo targets recorded. Patient InstructionsNo instructions recorded. Reason for Referral None Reported. Problems Name Problem SNOMED Code Status Onset Date Resolution Date Notes Provider Name and Address Organization Details Recorded Time Diabetes mellitus 49842362 Active 2023 BHARAT MIRANDA [address] [facility], [address], [place], [address], [facility] 4 20:18:04 Essential hypertensio n 95399518 Active 2023 BHARAT MIRANDA [address] [facility], [address], [place], [address], [facility] 4 20:18:10 Hyperlipide adrianna 37002220 Active 2023 BHARAT MIRANDA [address] [place] [address], [address], [place], [address], [facility] 4 20:18:16 Femoral-pop liteal artery bypass graft Completed 202311/27/2023 BHARAT MIRANDA [address] [place] [address], [address], [place], [address], [facility] 4 22:16:23 Anemia 323153649 Active 2023 BHARAT MIRANDA [address] [place] [address], [address], [place], [address], [facility] 4 20:20:45 Cerebrovasc ular accident 901873332 Active 2023 BHARAT MIRANDA [address] [place] [address], [address], [place], [address], [facility] 4 20:21:06 Femoro-ante rior tibial bypass graft Completed 202311/27/2023 BHARAT MIRANDA [address] [place] [address], [address], [place], [address], [facility] 4 22:16:23 Chronic kidney disease stage 3 260166584 Active 2023 BHARAT MIRANDA [address] [place] [address], [address], [place], [address], [facility] 4 20:28:49 Peripheral vascular disease 865062561 Active 2023 BHARAT MIRANDA [address] [place] [address], [address], [place], [address], [place] [facility] 20:29:56 Asthenia 21826685 Active 2023 FRED DUONG, BHARAT [address], [address], [place], [address], [facility] 20:30:45 Insomnia 978293682 Active 2023 FRED DUONG, BHARAT [address], [address], [place], [address], [facility] 4 21:49:49 Constipatio n 78350305 Active 2023 BHARAT MIRANDA [address], [address], [place], [address], [facility] 4 21:52:14 Acute kidney injury 91647020 Active 2023 BHARAT MIRANDA [address], [address], [place], [address], [facility] 4 21:56:55 Hypocalcemi a 6691376 Completed 202311/27/2023 BHARAT MIRANDA [address], [address], [place], [address], [facility] 4 22:16:23 Myasthenia gravis 35457581 Active 2023 BHARAT MIRANDA [address], [address], [place], [address], [facility] 4 22:10:42 Aphasia 17142797 Completed 202311/27/2023 BHARAT MIRANDA [address], [address], [place], [address], [facility] 4 22:16:23 Vascular dementia 530401648 Active 2023 BHARAT MIRANDA [address], [address], [place], [address], [facility] 4 13:06:33 Amputated below knee 592075474 Active 2023 BHARAT MIRANDA [address], [address], [place], [address], [facility] 4 16:38:11 Delirium 3911012 Active 2023 BHARAT MIRANDA [address], [address], [place], [address], [facility] 4 16:54:43 Dysphagia 24156039 Active 2023 KIP MIRANDAP [address], [address], [place], [address], [facility] 4 16:55:09 Toxic encephalopa thy 82312918 Active 2023 KIP MIRANDAP [address] [facility], [address], [place], [address], [facility] 4 16:55:43 Hypothyroid ism 54447181 Active 2023 KIP MIRANDAP [address] [facility], [address], [place], [address], [facility] 4 22:18:37 Anxiety 55682185 Active 2023 FRED DUONG [facility] [address] [facility], [address], [place], [address], [facility] 4 22:24:04 Carotid artery stenosis 31390195 Active 2023 BHARAT MIRANDA [address] [facility], [address], [place], [address], [facility] 4 12:10:00 Problem Notes None recorded. Medical Equipment None Reported. Allergies No known drug allergies Medications Name Sig Start Date Stop Date Status Note LastModified by Organization Details LastModified Time lorazepam 0.5 mg tablet Take 1 tablet every 6 hours by oral route as needed. active Not Available Not Available Not Avai lable oxycodone 5 mg tablet Take 1 tablet every 4 hours by oral route as needed. active Not Available Not Available Not Avai lable Lyrica 150 mg capsule lyrica 150 mg qd and 200 mg at HS active Not Available Not Available Not Avai lable Lyrica 200 mg capsule 200 mg po qhs 024 active Not Available Not Available Not Avai lable Vitals Date Recorded Body height Heart rate Respiratory rate Body temperature Oxygen saturation Oxygen saturation in Arterial blood by Pulse oximetry Systolic And Diastolic Provider Name and Address Organization Details Last Updated DateTime 4 165.1 cm 82 /min 18 /min 98 [degF] 97 % 97 % 118/68 mm[Hg] BHARAT MIRANDA [address] [facility], [address], [place], [address], [facility] 4 14:16:49 Date Recorded Body height Heart rate Respiratory rate Body temperature Oxygen saturation Oxygen saturation in Arterial blood by Pulse oximetry Systolic And Diastolic Provider Name and Address Organization Details Last Updated DateTime 4 165.1 cm 73 /min 18 /min 98 [degF] 94 % 94 % 111/76 mm[Hg] BHARAT MIRANDA [address] [facility], [facility] [address], [place], [address], [facility] 4 11:35:13 Date Recorded Body height Respiratory rate Body temperature Oxygen saturation Oxygen saturation in Arterial blood by Pulse oximetry Heart rate Systolic And Diastolic Provider Name and Address Organization Details Last Updated DateTime 4 165.1 cm 18 /min 98 [degF] 94 % 94 % 68 /min 118/71 mm[Hg] BHARAT MIRANDA [address] [facility], [address], [place], [address], [facility] 4 16:01:39 Date Recorded Body height Body mass index (BMI) Body weight Heart rate Respiratory rate Body temperature Oxygen saturation Oxygen saturation in Arterial blood by Pulse oximetry Systolic And Diastolic Provider Name and Address Organization Details Last Updated DateTime 4 165.1 cm 28.6 kg/m2 06537.8 9 g 73 /min 16 /min 98.4 [degF] 100 % 100 % 135/68 mm[Hg] BHARAT MIRANDA [address] [facility], [address], [place], [address], [facility] 4 15:14:16 Social History Question Answer Notes LastModified by Organizat ion Details LastModified Time Tobacco Smoking Status Never Smoker BHARAT MIRANDA [address] [facility], [address], [place], [address], [facility] 09/25/2023 02:31:25 Do You Have An Advance Directive? Yes Information not available 09/25/2023 What Is Your Level Of Caffeine Consumption? None Information not available 09/25/2023 What Is Your Code Status? Other Full Code :do Not Use Non-invasive Ventilation, No Art. Nutrition, Art Hydration Short Term Only And Undecided About Dialysis. Information not available 02/07/2024 Where Do You Live? Apartment With Elevator Information not available 10/17/2023 Legal Guardian? No Informati on not available 10/17/2023 Do You Have A Medical Power Of Chairman Of The Board? Yes Information not available 10/17/2023 What Was The Date Of Your Most Recent Tobacco Screening? 02/07/2024 Information not available 02/07/2024 Do You Have An Out Of Hospital DNR? No Information not available 10/17/2023 Have You Ever Been Counseled For Unhealthy Alcohol Use? No Information not available 09/25/2023 What Is Your Relationship Status? Single Information not available 10/17/2023 Has Tobacco Cessation Counseling Been Provided? No N/A As Pt Is A Non-smoker Information not available 10/17/2023 Sex: Unknown Functional Status Question Answer Note LastModified by Organizat ion Details LastModified Time How many times per week do you consume alcohol? 1-2 times per week Information not available 09/25/2023 Do you use any illicit or recreational drugs? No Information not available 09/25/2023 Do you or have you ever used any other forms of tobacco or nicotine? No Information not available 09/25/2023 What is your level of alcohol consumption? Occasional Information not available 09/25/2023 Mental Status None recorded. Family History Nothing Reported Notes:n/c Medical History No medical history recorded. Gynecological HistoryNo gynecological history recorded. Obstetrics History GPAL:G 0 P 0 0 0 0 Immunizations Vaccine Type Date Status Note Provider Nam e and Address Organization Details Recorded Time Tdap 9 completed Sara Johnson null, [facility] 09/26/2023 13:25:18 Tdap 8 completed Sara Johnson null, [facility] 09/26/2023 13:25:33 Pneumococcal conjugate PCV20, polysaccharide [id number] conjugate, adjuvant, PF [address] [facility], [facility] 09/26/2023 13:25:55 pneumococcal polysaccharide PPV23 4 completed Sara Johnson null, [facility] 09/26/2023 13:26:09 pneumococcal polysaccharide PPV23 7 completed Sara Johnson [facility] 09/26/2023 13:26:18 influenza, unspecified formulation 2 completed Sara Johnson [facility] 09/26/2023 13:26:47 influenza, unspecified formulation [address] [facility], [facility] 09/26/2023 13:26:55 SARS-COV-2 (COVID-19) vaccine, UNSPECIFIED 1 completed Sara Alex [facility] 09/26/2023 13:27:17 SARS-COV-2 (COVID-19) vaccine, UNSPECIFIED 1 completed Sara Alex [facility] 09/26/2023 13:27:40 SARS-COV-2 (COVID-19) vaccine, UNSPECIFIED [address] [facility], [facility] 09/26/2023 13:27:55 SARS-COV-2 (COVID-19) vaccine, UNSPECIFIED 2 [facility] 13:28:04 SARS-COV-2 (COVID-19) vaccine, UNSPECIFIED 2 completed [facility]/26[facility]23 13:28:24 SARS-COV-2 (COVID-19) vaccine, UNSPECIFIED 3 completed Sara Alex [facility] 09/26/2023 13:28:37 zoster, unspecified formulation 9 completed Sara Johnson [facility] 09/26/2023 13:29:06 zoster, unspecified formulation 9 completed Sara Johnson [facility] 09/26/2023 13:29:21 Past Encounters Encounter ID Performer Location Encounter Start Date Encounter Closed Date Diagnosis/Indication Diagnosis SNOMED-CT Code Diagnosis ICD10 Code Diagnosis IMO Codes Diagnosis Note [id number] BHARAT MIRANDA [address] [facility] [address] [facility] [address] [place] [address] 09/24/2023 15:34:40 10/17/2023 14:35:38 Peripheral vascular disease 061143177 I73.9 s/p right femoral endarterec bren with completion angiograms /p right femoral to anterior tibialis bypasss/p stent placement of the anterior tibialis along with debridemen t of the right dorsal foot wound.foll ow-up with vascular surgery for continued management of right lower extremity woundscont inue plavix 75 mg dailyconti nue eliquis 5 mg bidcontinu e aspirin 81 mg dailyconti nue lyrica 150 mg daily and 200 mg hscontinue oxycodone 5 mg q 6 prncontinu e lidocaine patch rightfollo w up with vascular 09/24 Asthenia 53579119 R53.1 hx of myasthenia gravisPT/O T eval and treat Diabetes mellitus 436231 09 E11.9 A1c 5.7 on 09/18hospit al records indicate that she states she is taking for constipati on, she is not sure she is a diabetic.c ontinue metformin 500 mg BIDcontinu e to monitor FSfollow-u p with PCP after discharge for further management Essential hypertension 97286612 I10 continue lisinopril 5 mg dailyconti nue metoprolol 50 mg bidfurosem manuel 40 mg dailymonit or BP /labs Hyperlipidemia 75745215 E78.5 atorvastat in 40 mg dailymonit or lipids prn Insomnia 296135288 G47.0 0 continue melatonin 9 mg hscontinue trazadone 12.5 mg hs prn Constipation 04215824 K5 9.00 continue colace 100 mg bidcontinu e miralax 17 gm dailyincre ase oral hydration Anemia 212194910 D64.9 continue ferrous sulfate 325 mg dailymonit or CBCH&H stable at 7.9/25.1 Hypocalcemia 8494772 E83 .51 continue calcium carbonate 500 mg dailyconti nue cholecalci ferol 1000 u daily Myasthenia gravis 678899 04 G70.00 carrying dxmaintain safety/pre cautionsno t on medication Cerebrovas cular accident 572267824 I63.9 carrying dx Chronic ki dney disease stage 3 683939201 N18.30 shirin resolved in acute careavoid nephrotoxi c medication smonitor labs [id number] [facility] [address] [place] [address] 09/25/2023 11:39:21 09/29/2023 14:42:16 Bleeding from nose 923683436 R04.0 uncontroll ed bleeding from right narespt is on multiple anticoag( asa, eliquis and plavix) held this morning.wi ll send to ED for eval and tx. [id number] BHARAT MIRANDA [address] [place] [address] 10/07/2023 11:03:46 10/14/2023 11:10:58 Open wound of right foot 0172001164 8253792 S91.301A dorsal right foot with wound vacDo Not remove wound vac, she has appt with vascular on 10/08 Surgical i ncision wound of skin 6888658249 00 R23.8 right lateral mid thigh with 22 tay right low leg hernandez 12 staple right lower extremity medial thigh wound with packing Peripheral vascular disease 718785900 I73.9 s/p right femoral endarterec bren with completion angiogram s/p right femoral to anterior tibialis bypass s/p stent placement of the anterior tibialis along with debridemen t of the right dorsal foot wound.10/01 sp left TCAR and right foot debridemen t continue plavix 75 mg dailyconti nue eliquis 5 mg bidcontinu e aspirin 81 mg dailyconti nue lyrica 150 mg daily and 200 mg hscontinue oxycodone 5 mg q 6 prncontinu e lidocaine patch rightfollo w up with vascular 09/24 Asthenia 13426394 R53.1 hx of myasthenia gravisPT/O T eval and treat Diabetes mellitus 880315 09 E11.9 A1c 5.7 on 09/18hospit al records indicate that she states she is taking for constipati on, she is not sure she is a diabetic.c ontinue metformin 500 mg BIDcontinu e to monitor FSfollow-u p with PCP after discharge for further management Essential hypertension 01636532 I10 continue lisinopril 5 mg dailyconti nue metoprolol 50 mg bidfurosem manuel 40 mg dailymonit or BP /labs Hyperlipidemia 62043857 E78.5 atorvastat in 40 mg dailymonit or lipids prn Insomnia 833258779 G47.0 0 continue melatonin 9 mg hscontinue trazadone 12.5 mg hs prn Constipation 10111538 K5 9.00 continue colace 100 mg bidcontinu e miralax 17 gm dailyincre ase oral hydration Anemia 672003101 D64.9 baseline 7.9-8decre ased to 7.0 due to epistaxiss he was transfused 2 PRBCsconti nue ferrous sulfate 325 mg dailymonit or CBC Hypocalcemia 5735890 E83 .51 continue calcium carbonate 500 mg dailyconti nue cholecalci ferol 1000 u daily Myasthenia gravis 786710 04 G70.00 carrying dxmaintain safety/pre cautionsno t on medication Cerebrovas cular accident 516263837 I63.9 carrying dx Chronic ki dney disease stage 3 827017867 N18.30 shirin resolved in acute careavoid nephrotoxi c medication smonitor labs Aphasia 20995339 R47.01 hx of CVAIntermi ttent aphasia/Wo rd finding difficulty no new stroke seen on brain MRI.Suspec t vascular dementia, may have some hypoperfus ion given her anemia. [id number] BHARAT MIRANDA [address] [place] [address] rd [place] [address] 10/13/2023 10:15:58 10/17/2023 15:25:22 Open wound of right foot 6111945377 8613698 S91.301A s/p wound debridemen t 10/08, will be returning to vascular 10/14 for integra placement and wound vac Surgical i ncision wound of skin 5170608464 00 R23.8 right lateral mid thigh with 22 staplesrig ht low leg hernandez 12 staplerigh t lower extremity medial thigh wound with packingnur sing to removed on 10/13 ord placed in [facility] Peripheral vascular disease 840189252 I73.9 s/p right femoral endarterec bren with completion angiogram s/p right femoral to anterior tibialis bypass s/p stent placement of the anterior tibialis along with debridemen t of the right dorsal foot wound.10/01 sp left TCAR and right foot debridemen t continue plavix 75 mg dailyconti nue eliquis 5 mg bidcontinu e aspirin 81 mg dailyconti nue lyrica 150 mg daily and 200 mg hscontinue oxycodone 5 mg q 6 prncontinu e lidocaine patch right Asthenia 74823747 R53.1 hx of myasthenia gravisPT/O T eval and treat Diabetes mellitus 772008 09 E11.9 A1c 5.7 on 09/18hospit al records indicate that she states she is taking for constipati on, she is not sure she is a diabetic.c ontinue metformin 500 mg BIDcontinu e to monitor FSfollow-u p with PCP after discharge for further management Essential hypertension 80320283 I10 continue lisinopril 5 mg dailyconti nue metoprolol 50 mg bidfurosem manuel 40 mg dailymonit or BP /labs Constipation 23783198 K5 9.00 continue colace 100 mg bidcontinu e miralax 17 gm dailyincre ase oral hydration Anemia 870402616 D64.9 baseline 7.9-8decre ased to 7.0 due to epistaxiss he was transfused 2 PRBCsconti nue ferrous sulfate 325 mg dailymonit or CBC Aphasia 99617811 R47.01 hx of CVAIntermi ttent aphasia/Wo rd finding difficulty no new stroke seen on brain MRI.Suspec t vascular dementia, may have some hypoperfus ion given her anemia. [id number] Whit Green MD [address] [place] [address] 10/17/2023 14:24:36 11/10/2023 12:08:31 Open wound of right foot 1776862900 4061460 S91.301A Continue wound care as ordered.F/ U with surgeon as planned for further debridemen t and wound vac placement. Surgical i ncision wound of skin 0931723633 00 R23.8 Wounds healing well.Stale s removed. Peripheral vascular disease 725590409 I73.9 s/p right femoral endarterec bren with completion angiogram s/p right femoral to anterior tibialis bypass s/p stent placement of the anterior tibialis along with debridemen t of the right dorsal foot wound.10/01 sp left TCAR and right foot debridemen tContinue Plavix 75 mg qd, Eliquis 5 mg BID, ASA 81 mg qd, Lyrica 150 mg qAM and 200 mg qhs, lidocaine patch on in AM And off in PM, and oxycodone 5 mg q 6 hrs prnMonitor sxs. Asthenia 41423341 R53.1 As above. Diabetes mellitus 035507 09 E11.9 HgA1C was 5.7 on 09/18All sugars <200 since here, so fingerstic ks d/c'd on 10/13Contin ue metformin 500 mg BIDMonitor fingerstic ks prn. Essential hypertension 45653822 I10 BP in good control on lisinopril 5 mg qd, metoprolol 50 mg BID, and furosemide 40 mg qdMonitor BP and labs. Constipation 33436207 K5 9.09 Continue bowel meds as ordered.Mo nitor bowel function. Anemia 162902948 D64.89 Multifacto rial.Jose nue ferrous sulfate 325 mg qdMonitor CBC Aphasia 88803015 R47.01 As above. Hyperlipidemia 67141376 E78.49 Continue atorvastat in 40 mg qdMonitor lipids yearly Insomnia 680142093 G47.0 0 Continue melatonin 9 mg qhs and trazadone 12.5 mg qhs prnMonitor sleep patterns. Hypocalcemia 3759751 E83 .51 Doesn't have hypocalcem ia.Correct ed Ca+ os 9.08Likely is on Ca+ and vit D for osteopenia .Continue calcium carbonate 500 mg qd and cholecalci ferol 1000 IU qd. Myasthenia gravis 090583 04 G70.00 Carrying dxOn no meds at this time.Very deconditio [place].Needs PT/OT for strengthen ing, balance, gait training, safety and function.C ontinue fall precaution s.Monitor for safety. Cerebrovas cular accident 378788349 I63.89 With mod to severe aphasia.SL P eval and tx.Continu e meds as above.Gonzalo ceasar for new neuro sxs. Chronic ki dney disease stage 3 255724449 N18.32 At baseline.C ontinue to avoid nephrotoxi c meds as able.Monit or labs.Renal consult prn. Anxiety 59702292 F41.1 Very anxious tonight. Anxiety makes it even harder for her to get her words out.Will start lorazepam 0.5 mg q 6 hrs prn [id number] BHARAT MIRANDA [address] [place] [address] [place] [address] 10/20/2023 12:45:25 10/21/2023 15:42:48 Open wound of right foot 8233481859 9443260 S91.301A 10/14: s/p wound debridemen tcontinue wound treatment as ordered.fo llow up with [facility] on 10/27 at 130 pm Surgical i ncision wound of skin 4718258066 00 R23.8 right lateral mid thigh - HEALING TAY REMOVED IN ACUTE CAREright low leg hernandez healingrig ht lower extremity medial thigh wound with packing Peripheral vascular disease 116639231 I73.9 s/p right femoral endarterec bren with completion angiogram s/p right femoral to anterior tibialis bypass s/p stent placement of the anterior tibialis along with debridemen t of the right dorsal foot wound.10/01 sp left TCAR and right foot debridemen t continue plavix 75 mg dailyconti nue eliquis 5 mg bidcontinu e aspirin 81 mg dailyconti nue lyrica 150 mg daily and 200 mg hscontinue oxycodone 5 mg q 6 prncontinu e lidocaine patch right Asthenia 51921424 R53.1 hx of myasthenia gravisPT/O T eval and treat Diabetes mellitus 126032 09 E11.9 continue metformin 500 mg BIDcontinu e to monitor FSfollow-u p with PCP after discharge for further management Essential hypertension 29793088 I10 continue lisinopril 5 mg dailyconti nue metoprolol 50 mg bidfurosem manuel 40 mg dailymonit or BP /labs Constipation 50324240 K5 9.00 continue colace 100 mg bidschedul ed miralax 17 gm daily and senna 8.6 mg daily.incr ease oral hydration Anemia 883898885 D64.9 see hpitoday 6.7 -will recheck on 10/20contin ue ferrous sulfate 325 mg dailycolor is normal, there is no SOB, extremitie s are warm.monit or CBC [id number] BHARAT MIRANDA [address] [place] [address] [place] [address] 10/24/2023 09:49:56 10/28/2023 10:28:17 Open wound of right foot [id number] S91.301A 10/14: s/p wound debridemen tcontinue wound treatment as ordered.fo llow up with BVS on 10/27 at 130 pm Peripheral vascular disease 228475364 I73.9 s/p right femoral endarterec bren with completion angiogram s/p right femoral to anterior tibialis bypass / s/p stent placement of the anterior tibialis along with debridemen t of the right dorsal foot wound.10/01 sp left TCAR and right foot debridemen t continue plavix 75 mg dailyconti nue eliquis 5 mg bidcontinu e aspirin 81 mg dailyconti nue lyrica 150 mg daily and 200 mg hscontinue oxycodone 5 mg q 6 prncontinu e lidocaine patch right Diabetes mellitus 556136 09 E11.9 continue metformin 500 mg BIDcontinu e to monitor FSfollow-u p with PCP after discharge for further management Essential hypertension 66450903 I10 continue lisinopril 5 mg dailyconti nue metoprolol 50 mg bidfurosem manuel 40 mg dailymonit or BP /labs Anemia 056466375 D64.9 see hpicontinu e ferrous sulfate 325 mg dailycolor is normal, there is no SOB, extremitie s are warm.monit or CBC [id number] BHARAT MIRANDA [facility] [address] [facility] [place] [address] 10/31/2023 09:45:20 11/04/2023 11:18:14 Open wound of right foot [id number] S91.301A 10/14: s/p wound debridemen tcontinue wound treatment as ordered.fo llow up with BVS on 10/28 with new wound care orders-[facility] care for R foot: Apply saline moistened Promogran over Puraply three times weekly. Peripheral vascular disease 178483420 I73.9 s/p right femoral endarterec bren with completion angiogram s/p right femoral to anterior tibialis bypass s/p stent placement of the anterior tibialis along with debridemen t of the right dorsal foot wound.10/01 sp left TCAR and right foot debridemen t continue plavix 75 mg dailyconti nue eliquis 5 mg bidcontinu e aspirin 81 mg dailyconti nue lyrica 150 mg daily and 200 mg hscontinue oxycodone 5 mg q 6 prncontinu e lidocaine patch right Diabetes mellitus 482886 09 E11.9 continue metformin 500 mg BIDcontinu e to monitor FSfollow-u p with PCP after discharge for further management Essential hypertension 65306814 I10 continue lisinopril 5 mg dailyconti nue metoprolol 50 mg bidfurosem manuel 40 mg dailymonit or BP /labs Anemia 815577472 D64.9 see hpicontinu e ferrous sulfate 325 mg dailycolor is normal, there is no SOB, extremitie s are warm.monit or CBC [id number] [facility] [place] [address] 11/04/2023 08:23:37 11/07/2023 11:43:31 Open wound of right foot [id number] S91.301A 10/14: s/p wound debridemen tcontinue wound treatment as ordered.fo llow up with BVS on 10/28 with new wound care orders-Wou nd care for R foot: Apply saline moistened Promogran over Puraply three times weekly.[facility]. [facility] disease 148686981 I73.9 s/p right femoral endarterec bren with completion angiogram s/p right femoral to anterior tibialis bypass s/p stent placement of the anterior tibialis along with debridemen t of the right dorsal foot wound.10/01 sp left TCAR and right foot debridemen t continue plavix 75 mg dailyconti nue eliquis 5 mg bidcontinu e aspirin 81 mg dailyconti nue lyrica 150 mg daily and 200 mg hscontinue oxycodone 5 mg q 6 prncontinu e lidocaine patch right Diabetes mellitus 685318 09 E11.9 continue metformin 500 mg BIDcontinu e to monitor FS Essential hypertension 68706214 I10 continue lisinopril 5 mg dailyconti nue metoprolol 50 mg bidfurosem manuel 40 mg dailymonit or BP /labs Anemia 706252624 D64.9 H/H has been stable.con tinue ferrous sulfate 325 mg dailycolor is normal, there is no SOB, extremitie s are warm.monit or CBC [id number] BHARAT MIRANDA [address] [place] [address] 11/10/2023 13:44:19 11/13/2023 13:20:18 Open wound of right foot [id number] S91.301A 10/14: s/p wound debridemen tcontinue wound treatment as ordered.fo llow up with BVS on 10/28 with new wound care orders-Wou nd care for R foot: Apply saline moistened Promogran over Puraply three times weekly.10/21 5 :s/p right foot debridemen t, applicatio n of skin substitute graftfollo w up appt 11/10 at [facility] with vascular. Peripheral vascular disease 492516689 I73.9 s/p right femoral endarterec bren with completion angiogram3 15 s/p right femoral to anterior tibialis bypass s/p stent placement of the anterior tibialis along with debridemen t of the right dorsal foot wound.10/01 sp left TCAR and right foot debridemen t continue plavix 75 mg dailyconti nue eliquis 5 mg bidcontinu e aspirin 81 mg dailyconti nue lyrica 150 mg daily and 200 mg hscontinue oxycodone 5 mg q 6 prncontinu e lidocaine patch right Diabetes mellitus 621040 09 E11.9 continue metformin 500 mg BIDcontinu e to monitor FS Essential hypertension 13695997 I10 continue lisinopril 5 mg dailyconti nue metoprolol 50 mg bidfurosem manuel 40 mg dailymonit or BP /labs Anemia 769342643 D64.9 H/H 6.6/21.2- will repeat labsconsid er adding ascorbic acid dailyconti nue ferrous sulfate 325 mg dailycolor is normal, there is no SOB, extremitie s are warm.monit or CBC [id number] BHARAT MIRANDA [address] [place] [address] 11/11/2023 08:21:08 11/13/2023 15:50:07 Open wound of right foot [id number] [id number] S91.301A see HPI with new finding today,10/14 : s/p wound debridemen :s/p right foot debridemen t, applicatio n of skin substitute graft11/05: friday morning sent back to S for excessive wound bleeding thru dressings- transfused 1 unit of packed red blood cells.11/06 : returned from [facility].: abnormal H/H 6.3/19.9 Peripheral vascular disease 194206125 I73.9 s/p right femoral endarterec bren with completion angiogram s/p right femoral to anterior tibialis bypass s/p stent placement of the anterior tibialis along with debridemen t of the right dorsal foot wound.10/01 sp left TCAR and right foot debridemen t continue plavix 75 mg dailyconti nue eliquis 5 mg bidcontinu e aspirin 81 mg dailyconti nue lyrica 150 mg daily and 200 mg hscontinue oxycodone 5 mg q 6 prncontinu e lidocaine patch right Anemia 054160247 D64.9 H/H 6.3/19.9co ntinue ferrous sulfate 325 mg dailycolor is pale there is no SOB, extremitie s are warm, right foot cold. [id number] [facility]DA [facility] [address] [place] [address] [place] [address] 11/24/2023 12:13:56 12/01/2023 15:08:58 Amputated below knee 240339134 Z89.519 Critical limb ischemia of right lower extremity now s/p right below knee amputation .continue oxycodone 5 mg q 6 prnfollow up with vascular on 11/27/23 Peripheral vascular disease 783364820 I73.9 s/p below knee amputation continue asa, plavix and eliquiscon tinue oxycodonec ontinue lyrica 150 mg qd and 200 mg at HS Delirium 2441052 R41.0 resolved in acute careof note she is at baseline status, she is alert and oriented. Dysphagia 92048444 R13.1 0 resolvedsh e was seen by speech in acute acute care, continue reg diet with thin liquids Toxic encephalopathy 283 20495 G92.9 resolved in acute careammoni a level 20 on 11/19 Diabetes mellitus 208094 09 E11.9 continue metformin 500 mg BIDcontinu e to monitor FS Essential hypertension 41059765 I10 continue lisinopril 5 mg dailyconti nue metoprolol 50 mg bidfurosem manuel 40 mg dailymonit or BP /labs Hypothyroidism 17248830 E03.9 continue levothyrox ine 200 mcgtsh 8- recheck labs in 6-8 weeks Hyperlipidemia 05834739 E78.49 atorvastat in 40 mg dailymonit or lipids prn Anemia 390740069 D64.9 continue ferrous sulfate 325 mg dailycont. Vit D 1000u daily Constipation 58052489 K5 9.09 continue colace 100 mg bidschedul ed miralax 17 gm daily and senna 8.6 mg daily.incr ease oral hydration Anxiety 39783659 F41.9 continue ativan 0.5 mg q6 prnpsych eval and tx- she had recent amputation , I think she will benefit from speaking with psych, she will need support coping with limp loss. [id number] BHARAT MIRANDA [address] [place] [address] [place] [address] 11/26/2023 10:12:07 12/01/2023 16:19:16 Cough 54625436 R05.9 11/24: non productive congested cough- is not interrupti ng with sleepchest xay showed no active infiltrate s or changes ofpulmonar y venous congestion or evidence of a pleural effusion.w ill start mucinex 600 mg q12 for 7 days and re eval. Amputated below knee 299 834504 Z89.519 Critical limb ischemia of right lower extremity now s/p right below knee amputation .continue oxycodone 5 mg q 6 prnfollow up with vascular on 11/27/23PT/O T eval and treatment for conditioni ng and strengthen ing. Peripheral vascular disease 724819624 I73.9 s/p below knee amputation continue asa, plavix and eliquiscon tinue oxycodonec ontinue lyrica 150 mg qd and 200 mg at HS Essential hypertension 51620188 I10 continue lisinopril 5 mg dailyconti nue metoprolol 50 mg bidfurosem manuel 40 mg dailymonit or BP /labs Hypothyroidism 40391091 E03.9 continue levothyrox ine 200 mcgtsh 8- recheck labs in 6-8 weeks Anxiety 12843339 F41.9 continue ativan 0.5 mg q6 prnpsych eval and tx- she had recent amputation , I think she will benefit from speaking with psych, she will need support coping with limp loss.mood is stable today. [id number] BHARAT MIRANDA [address] [address] 12/01/2023 08:59:26 12/04/2023 16:20:28 Cough 59260398 R05.9 resolved Amputated below knee 299 566129 Z89.519 right below knee amputation .continue oxycodone 5 mg q 6 prncontinu e PT/OT eval and treatment for conditioni ng and strengthen ing.contin ue wound care Betadine, dry gauze, the stump slat basket top maker and the amputation shield. Peripheral vascular disease 022444663 I73.9 s/p below knee amputation continue asa, plavix and eliquiscon tinue oxycodonec ontinue lyrica 150 mg qd and 200 mg at HS Essential hypertension 44212138 I10 continue lisinopril 5 mg dailyconti nue metoprolol 50 mg bidfurosem manuel 40 mg dailymonit or BP /labs Hypothyroidism 21827558 E03.9 continue levothyrox ine 200 mcgtsh 8- recheck labs in 6-8 weeks Anxiety 16655190 F41.9 continue ativan 0.5 mg q6 prnshe was seen by faculty neuropsychologist who is recommendi ng starting duloxetine , benfits discuused ,patient will like to think about it. Carotid ar charlene stenosis 74510966 I65.29 stent placement in septemberr. Antony would like her on aspirin and plavix for 3 months post op, then can resume aspirin and eliquis.Sh e will need a carotid duplex later on this summer to recheck the right carotid, determine whether to reinterven e on the stent. [id number] BHARAT MIRANDA [facility] [address] [place] [phone] 12/03/2023 11:22:32 12/05/2023 08:57:56 Amputated below knee 814004780 Z89.519 right below knee amputation .continue oxycodone 5 mg q 6 prncontinu e PT/OT eval and treatment for conditioni ng and strengthen ing.contin ue wound care Betadine, dry gauze, the stump slat basket top maker and the amputation shield. Peripheral vascular disease 420078416 I73.9 s/p below knee amputation continue asa, plavix and eliquiscon tinue oxycodonec ontinue lyrica 150 mg qd and 200 mg at HS Essential hypertension 76775238 I10 continue lisinopril 5 mg dailyconti nue metoprolol 50 mg bidfurosem manuel 40 mg dailymonit or BP /labs Hypothyroidism 17565100 E03.9 continue levothyrox ine 200 mcgtsh 8- recheck labs in 6-8 weeks Anxiety 60600345 F41.9 continue ativan 0.5 mg q6 prnshe was seen by faculty neuropsychologist who is recommendi ng starting duloxetine , benfits discuused ,patient will like to think about it. Carotid ar charlene stenosis 83156446 I65.29 stent placement in septemberr. Marecki would like her on aspirin and plavix for 3 months post op, then can resume aspirin and eliquis.Sh e will need a carotid duplex later on this summer to recheck the right carotid, determine whether to reinterven e on the stent. [id number] BHARAT MIRANDA [facility] [address] [place] [phone] 12/08/2023 11:21:52 12/10/2023 16:46:41 Amputated below knee 511188768 Z89.519 right below knee amputation .continue oxycodone 5 mg q 6 prncontinu e PT/OT eval and treatment for conditioni ng and strengthen ing.contin ue wound care Betadine, dry gauze, the stump slat basket top maker and the amputation shield. Peripheral vascular disease 001630902 I73.9 s/p below knee amputation continue asa, plavix and eliquiscon tinue oxycodone Q 6continue lyrica 150 mg qd and 200 mg at HS Essential hypertension 51641097 I10 continue lisinopril 5 mg dailyconti nue metoprolol 50 mg bidfurosem manuel 40 mg dailymonit or BP /labs Hypothyroidism 84486279 E03.9 continue levothyrox ine 200 mcgtsh 8- recheck labs in 6-8 weeks Constipation 92858703 K5 9.09 she reports that she has not had a bowel movement in a few days( more than 3-4 days)there is no nausea, abd soft, no distention + BS x 4.continue colace 100 mg bidcontinu e miralax 17 gm daily and increase senna 8.6 mg to BIDnurses to give MOM and monitor, if no BM by friday evening, will order imaging.in crease oral hydration [id number] BHARAT MIRANDA [facility]ETH CORNEJO [address] [place] [address] 12/11/2023 09:07:09 12/17/2023 10:30:12 Amputated below knee 458390394 Z89.519 right below knee amputation .continue oxycodone 5 mg q 6 prncontinu e PT/OT eval and treatment for conditioni ng and strengthen ing.contin ue wound care Betadine, dry gauze, the stump slat basket top maker and the amputation shield. Peripheral vascular disease 044877068 I73.9 s/p below knee amputation continue asa, plavix and eliquiscon tinue oxycodone Q 6continue lyrica 150 mg qd and 200 mg at HS Essential hypertension 68347630 I10 continue lisinopril 5 mg dailyconti nue metoprolol 50 mg bidfurosem manuel 40 mg dailymonit or BP /labs Hypothyroidism 62516142 E03.9 labs completed on 12/02 seen today and noted with TSH 16.3 and T4 5.1she is currently taking levothyrox ine 200 mcg daily, will increase to 225 mcg and recheck 01/21 or sooner.she reports being tired at times but is not having any other sx at this time Constipation 48577296 K5 9.09 see hpinormact farida bowel soundscont inue colace 100 mg bidcontinu e miralax 17 gm daily and increase senna 8.6 mg to BID [id number] Whit Green MD [address] [place] [address] 12/15/2023 15:52:03 12/17/2023 10:49:23 Amputated below knee 885851905 Z89.511 As above. Peripheral vascular disease 211434836 I73.89 S/P right BKA.Contin ue Plavix 75 mg qd, Eliquis 5 mg BID, ASA 81 mg qd, Lyrica 150 mg qAM and 200 mg qhs, lidocaine patch on in AM And off in PM, and oxycodone 5 mg q 6 hrs prnTo be on ASA and Plavix for 3 months after carotid stent, then can be on just ASA and Eliquis.F/ U with vascular on 01/17 as planned. Will get stapes out then and then can start slat basket top maker.P rosthetics consult when ready. Essential hypertension 51465310 I10 BP remains in good control on lisinopril 5 mg qd, metoprolol 50 mg BID, and furosemide 40 mg qdMonitor BP and labs. Hypothyroidism 77534129 E03.9 Last TSH sl. high, with nl FT4, but low FT3.Contin ue levothyrox ine 225 mcgRecheck TSH as planned. Constipation 78771495 K5 9.09 No c/o today.Cont inue bowel meds as ordered.Mo nitor bowel function. Carotid ar charlene stenosis 18869790 I65.29 S/P stent placement in 09/2023.To be on ASA and Plavix x 3 months.The n can stop Plavix.To have repeat U/S next month [id number] BHARAT MIRANDA [facility] [address] [place] [address] 12/18/2023 13:52:47 12/19/2023 15:18:26 Amputated below knee 628839327 Z89.519 right below knee amputation .continue oxycodone 5 mg q 6 prncontinu e PT/OT for conditioni ng and strengthen ing.contin ue wound care Betadine, dry gauze, the stump slat basket top maker and the amputation shield.karli sing states wound healing without s/sx of infection. Peripheral vascular disease 417028181 I73.9 continue asa, plavix and eliquiscon tinue oxycodone Q 6continue lyrica 150 mg qd and 200 mg at HS Essential hypertension 53116597 I10 continue lisinopril 5 mg dailyconti nue metoprolol 50 mg bidfurosem manuel 40 mg dailymonit or BP /labs Hypothyroidism 22260498 E03.9 Continue levothyrox ine 225 mcgrecheck TSH around 01/21 [id number] BHARAT MIRANDA [facility] [address] [place] [address] 12/23/2023 11:23:38 01/13/2024 07:43:35 Amputated below knee 414118912 Z89.519 right below knee amputation .continue oxycodone 5 mg q 6 prncontinu e PT/OT for conditioni ng and strengthen ing.contin ue wound care Betadine, dry gauze, the stump slat basket top maker and the amputation shield.karli sing states wound healing without s/sx of infection. Peripheral vascular disease 680478889 I73.9 continue asa, plavix and eliquiscon tinue oxycodone Q 6continue lyrica 150 mg qd and 200 mg at HS Essential hypertension 51961920 I10 continue lisinopril 5 mg dailyconti nue metoprolol 50 mg bidfurosem manuel 40 mg dailymonit or BP /labs Hypothyroidism 20782756 E03.9 Continue levothyrox ine 225 mcgrecheck TSH around 8 Anxiety 73654523 F41.9 continue ativan 0.5 mg q6 prnshe has agreed to try antidepres santshe was started on fluoxetine 20 mg daily on 12/14will monitor mood and behavior Diabetes mellitus 296021 09 E11.9 no recent BGL, will order weekly checks.con tinue metformin 500 mg BIDcontinu e to monitor FS [id number] BHARAT MIRANDA [address] [address] 12/30/2023 09:15:00 01/13/2024 08:13:38 Amputated below knee 014498252 Z89.519 right below knee amputation .continue oxycodone 5 mg q 6 prncontinu e PT/OT for conditioni ng and strengthen ing.contin ue wound care Betadine, dry gauze, the stump slat basket top maker and the amputation shield.karli shields states wound healing without s/sx of infection. she will have remaining stable removed this upcoming monday 01/01. Peripheral vascular disease 256065684 I73.9 continue asa, plavix and eliquiscon tinue oxycodone Q 6continue lyrica 150 mg qd and 200 mg at HS Essential hypertension 86596369 I10 continue lisinopril 5 mg dailyconti nue metoprolol 50 mg bidfurosem manuel 40 mg dailymonit or BP /labs Hypothyroidism 41846587 E03.9 Continue levothyrox ine 225 mcgrecheck TSH around 01/21 Anxiety 69101060 F41.9 continue ativan 0.5 mg q6 prnshe has agreed to try antidepres santshe was started on fluoxetine 20 mg daily on 12/14will monitor mood and behavior Diabetes mellitus 740282 09 E11.9 no recent BGL, will order weekly checks.con tinue metformin 500 mg BIDcontinu e to monitor FS7/724 BGL 120 [id number] BHARAT MIRANDA [address] [address] 01/01/2024 08:54:05 01/13/2024 08:26:39 Amputated below knee 540940145 Z89.519 right below knee amputation .continue oxycodone 5 mg q 6 prn- will change to 24 prn and eventually stop of noted she has not used in 3 days.jose nue PT/OT for conditioni ng and strengthen ing.contin ue wound care Betadine, dry gauze, the stump slat basket top maker and the amputation shield.wou nd healing without s/sx of infection. she will have remaining tay removed this upcoming monday 01/01. Peripheral vascular disease 316616799 I73.9 continue asa, plavix and eliquiscon tinue oxycodone Q 6continue lyrica 150 mg qd and 200 mg at HS Essential hypertension 95647266 I10 continue lisinopril 5 mg dailyconti nue metoprolol 50 mg bidfurosem manuel 40 mg dailymonit or BP /labs Anxiety 13204448 F41.9 continue ativan 0.5 mg q6 prnshe has agreed to try antidepres santshe was started on fluoxetine [facility] mg [facility] and behavior [id number] [facility] [address] [place] [address] 01/05/2024 10:05:30 01/13/2024 09:02:23 Amputated below knee 414399842 Z89.519 right below knee amputation .remaining tay removed on 01/02/24- she has small superficia l open area moist and draining scant serous output. wound care for to cleanse with NS and apply aquacel cover with gauze.cont inue oxycodone 5 mg q 12 prn-contin ue PT/OT for conditioni ng and strengthen ing.contin ue wound care, the stump slat basket top maker and the amputation shieldwoun d healing without s/sx of infection. Peripheral vascular disease 510309489 I73.9 continue asa, plavix and eliquiscon tinue oxycodone Q 6continue lyrica 150 mg qd and 200 mg at HS Essential hypertension 75674910 I10 BP has been underconti nue lisinopril 5 mg dailyconti nue metoprolol 50 mg bidfurosem manuel 40 mg dailymonit or BP /labs Anxiety 17854113 F41.9 continue ativan 0.5 mg q6 prnshe has agreed to try antidepres santshe was started on fluoxetine 20 mg daily on 12/14will monitor mood and behavior Carotid ar charlene stenosis 85784197 I65.29 01/04:Histo ry of bilateral TCAR and left carotid endarterec bren.will need carotid duplex to be scheduled by vascularst ent placement in septemberr. Antony would like her on aspirin and plavix for 3 months post op, then can resume aspirin and eliquis.Sh isadora will need a carotid duplex later on this summer to recheck the right carotid, determine whether to reinterven e on the stent. [id number] Sandra WilliamsonLeonides JOHNSON [facility] [address] [facility] [place] [address] 01/09/2024 09:41:31 01/13/2024 09:28:24 Amputated below knee 759503712 Z89.519 does not need wrap. healedappl y skin prep BID nsg updated.wo rking with PTpain controlled . Vascular dementia 706265 004 F01.54 chronis stablediff iculty to recall thoughts and respond to questions. mood stablecont inue supportive caremonito r for decline. [id number] FEMI SORIANO [facility] [address] [facility] [place] [address] 01/15/2024 09:58:42 01/17/2024 09:32:05 Amputated below knee 992683601 Z89.519 right below knee amputation .remaining tay removed on 01/02/24- continues to heal well.stop oxycodone 5 mg q 12 prn due to minimal usecontinu e PT/OT for conditioni ng and strengthen ing.contin ue wound care, the stump slat basket top maker and the amputation shieldwoun d healing without s/sx of infection. Peripheral vascular disease 565703313 I73.9 continue asa, plavix and eliquiscon tinue lyrica 150 mg qd and 200 mg at HS for pain mgmt Essential hypertension 17080702 I10 VSS, BP soft on occasionco ntinue lisinopril 5 mg dailyconti nue metoprolol 50 mg bidfurosem manuel 40 mg dailymonit or BP /labs Anxiety 85087149 F41.9 continue ativan 0.5 mg q6 prn - occasional use, discussed with nsg. will renew for another 14 days.Dulox etine 20 mg daily recently started, ellie. well so far, nsg. feels it has been helping mood and behaviors. Continue to monitorPsy ch following as well. Carotid ar charlene stenosis 09029211 I65.29 History of bilateral TCAR and left carotid endarterec bren.s/p stent placement 09/2023Foll ow up unclear, mention of carotid duplex to be scheduled by vascularAl so still on plavix, rec. x 3 months post procedure, now at that time.Menti on of Vasc. follow up on 01/17, but not on calendar here.Discu ssed with nsg., will reach out to Dr. Hardy's office about the ultrasound , plavix, and follow up appt. [id number] BHARAT MIRANDA [address] [facility] [place] [place] [address] 01/20/2024 10:59:01 01/21/2024 15:44:22 Amputated below knee 408218790 Z89.519 right below knee amputation , continues to heal well.now open to air ,wound healing without s/sx of infection. continue tylenol and lyrica Peripheral vascular disease 260971252 I73.9 continue asa, plavix and eliquiscon tinue lyrica 150 mg qd and 200 mg at HS for pain mgmtwill discuss need to continue plavix at vascular appt 01/23/24 Essential hypertension [id number] I10 continue lisinopril 5 mg dailyconti nue metoprolol 50 mg bidfurosem manuel 40 mg dailymonit or BP /labs Anxiety 59963578 F41.9 continue ativan 0.5 mg q6 prn - occasional use, discussed with nsg. will renew for another 14 days.Dulox etine 20 mg daily recently started, ellie. well so far, nsg. feels it has been helping mood and behaviors. - seen by faculty neuropsychologist on 01/18 reports feeling some improvemen t with duloxetine , recommende d to continueCo ntinue to monitorPsy ch following as well. Carotid ar charlene stenosis [id number] I65.29 History of bilateral TCAR and left carotid endarterec bren.stent placement in september 2023will need carotid duplex to be scheduled by vascular at her next appt.Dr. Hardy would like her on aspirin and plavix for 3 months post op, then can resume aspirin and eliquis.josé miguel muir has carotid ultrasound scheduled for 01/22. decision to continue or stop plavix will be discussed at that appointmen t. [id number] BHARAT MIRANDA [address] [place] [address] 01/21/2024 12:11:32 01/26/2024 16:07:08 COVID-19 [id number] U07.1 see hpiwill started paxlovid, isolation precaution supportati ve treatment: with mucinex 600 mg BID for 5 dayspaxlov id as orderedprn neb tx for sob. [id number] BHARAT MIRANDA [address] [place] [address] 01/26/2024 16:29:45 01/27/2024 13:09:54 COVID-19 [id number] U07.1 she has been stable no reportable sx notedwill received last dose of paxlovid tonightiso lation precaution continue supportati ve treatment: prn neb tx for sob. Amputated below knee 299 065489 Z89.519 right below knee amputation , continues to heal well.now open to air ,wound healing without s/sx of infection. continue tylenol and lyrica Peripheral vascular disease 268791087 I73.9 continue asa, plavix and eliquiscon tinue lyrica 150 mg qd and 200 mg at HS for pain mgmtwill discuss need to continue plavix at vascular appt 01/23/24 Essential hypertension 87612917 I10 continue lisinopril 5 mg dailyconti nue metoprolol 50 mg bidfurosem manuel 40 mg dailymonit or BP /labs Anxiety 00025626 F41.9 continue ativan 0.5 mg q6 prn -continue Duloxetine 20 mg dailymood has been good.Jose nue to monitorPsy ch following as well. Carotid ar charlene stenosis 72956123 I65.29 History of bilateral TCAR and left carotid endarterec bren.stent placement in september 2023will need carotid duplex to be scheduled by vascular at her next appt.Dr. Hardy would like her on aspirin and plavix for 3 months post op, then can resume aspirin and eliquis.josé miguel muir had carotid ultrasound scheduled for 01/22.- reschedule d due to covid decision to continue or stop plavix will be discussed at that appointmen tJavier [id number] BHARAT MIRANDA [address] [place] [address] rd JOAQUINA VARGAS [address] 01/30/2024 09:52:30 02/03/2024 11:09:10 COVID-19 [id number] U07.1 completed anti-viral . Amputated below knee 299 804836 Z89.519 right below knee amputation , continues to heal well.now open to air ,wound healing without s/sx of infection. continue tylenol and lyrica Peripheral vascular disease 206584808 I73.9 continue asa, plavix and eliquis- on hold for now for melenacont inue lyrica 150 mg qd and 200 mg at HS for pain mgmt Essential hypertension 08796702 I10 continue lisinopril 5 mg dailyconti nue metoprolol 50 mg bidfurosem manuel 40 mg dailymonit or BP /labs Anxiety 75733222 F41.9 continue ativan 0.5 mg q6 prn -continue Duloxetine 20 mg dailyConti nue to monitorPsy ch following as well. Carotid ar charlene stenosis 65203389 I65.29 History of bilateral TCAR and left carotid endarterec bren.stent placement in september 2023will need carotid duplex to be scheduled by vascular at her next appt.Dr. Hardy would like her on aspirin and plavix for 3 months post op, then can resume aspirin and eliquis.josé miguel muir had carotid ultrasound scheduled for 01/22.- reschedule d due to covid decision to continue or stop plavix will be discussed at that appointmen tJavier Meza [id number] K92.1 01/28: nursing report black tarry stool, eliquis held, CBC ord.01/29: H/H 8.7-27.8 -plavix and asa placed on hold.Patiisadora nt has no GI upset complaints .Will monitor for the next 2 days and repeat labs on Friday to include iron, ferritin and TIBCWill add protonix [address] daily prophylact icallynurs ing to monitor for and update provider if patient develops abdominal pain, indigestio n, hematemesi s, weakness, dizziness and or pallor. [id number] BHARAT MIRANDA [address] [place] [address] JOAQUINA VARGAS [address] 02/02/2024 08:49:06 02/04/2024 10:55:24 Melena 7030313 K92.1 02/01: continue to have black tarry stools- send to ED for eval.01/29: H/H 8.7-27.8 -plavix and asa placed on hold.01/28: nursing report black tarry stool, eliquis held, CBC ord.Mairana t has no GI upset complaints .01/29 to include iron, ferritin and TIBC -completed noted abnormal. added protonix [address] daily prophylact icallynurs ing to monitor for and update provider if patient develops abdominal pain, indigestio n, hematemesi s, weakness, dizziness and or pallor. Anemia 897995497 D64.9 H/H trending down today noted at 12/08-signi ficant drop in 7 days tested 3 times. continue ferrous sulfate 325 mg dailycont. Vit D 1000u daily [id number] FEMI Mcduffie [address] [place] [address] JOAQUINA VARGAS [address] 02/07/2024 07:51:13 02/13/2024 09:17:41 Anemia 296557005 D64.9 per [facility] summary: Held Eliquis, aspirin and Plavix since that date. (01/28), patient is on triple therapy as an outpatient (per vascular surgery documentat ion and per coordinati on, Eliquis for her bypass patency) No evidence of active bleeding in house, however anemia suspected to be due to slow GI bleed, unknown site, in the setting of triple therapy (with aspirin, Plavix, Eliquis) Blood work obtained with hemoglobin 6 on admission to [facility],No reports of blood in stool or melena during this hospitaliz ation S/p 1 PRBC, status post 1 liter fluid bolus in ED patient is on triple therapy as an outpatient (per vascular surgery documentat ion and per coordinati on, Eliquis for her bypass patency) it was determined to dc analisa velasquez us sulfate 325 mg dailycont. Vit D 1000u dailymonit or cbc and bmp weekly on mondays x 3 Esophagitis 85540988 K20 .90 no melena noted in hospital, but noted at facility priorEGD/c olonoscopy was done on 02/04, per results, no evident bleeding lesions, evidence of esophagiti s dissecans superficia lis, hiatal hernia, evidence of prior sleeve gastrectom y contproton ix [address] daily nursing to monitor for and update provider if patient develops abdominal pain, indigestio n, hematemesi s, weakness, dizziness and or pallor.mon itor cbc and bmp weekly on mondays x 3 Anxiety 94234810 F41.9 while in hopsital her ativan 0.5 mg q6 prn was discontinu edcontinue Duloxetine 20 mg dailyConti nue to monitorPsy ch following as well. Hypothyroidism 06405266 E03.9 adjusted in hospitalco nt levothyrox ine 200 mcg po dailyreche ck tsh in 8 weeksmonit or Essential hypertension 24793807 I10 bp initially soft in hospital, lisinopril was held, now resolved and resumedcon tlisinopri l 5 mg po dailymetop rolol 50 mg po q 12 hoursmonit or Amputated below knee 299 191897 Z89.519 right below knee amputation , continues to heal well.jose nue tylenol and lyricafu with vascular as planned Peripheral vascular disease 022005622 I73.9 eliquis on holdcontin ueasa, plavixlyri ca 150 mg qdmonitor Pressure i njury of coccygeal region of back stage II [id number] 9996960 L89.152 healing denuded skin to right coccyx02/06 apply barrier cream topically bid and prnfrequen t brief changes and reposition ingmonitor for infection Vascular dementia 303440 004 F01.54 stablediff iculty to recall thoughts and respond to questions at baseline per staffmood stablecont inue supportive caremonito r for decline. [id number] BHARAT MIRANDA [address] [place] [address] [place] [address] 02/09/2024 09:54:52 02/13/2024 10:04:39 Esophagitis 08990520 K20.90 no melena noted in hospital, but noted at facility priorEGD/c olonoscopy was done on 02/04, per results, no evident bleeding lesions, evidence of esophagiti s dissecans superficia lis, hiatal hernia, evidence of prior sleeve gastrectom y contproton ix [address] daily nursing to monitor for and update provider if patient develops abdominal pain, indigestio n, hematemesi s, weakness, dizziness and or pallor.mon itor cbc and bmp weekly on mondays x 3 Anemia 671113921 D64.9 per [facility] summary: Held Eliquis, aspirin and Plavix since that date. (01/28), patient is on triple therapy as an outpatient (per vascular surgery documentat ion and per coordinati on, Eliquis for her bypass patency) No evidence of active bleeding in house, however anemia suspected to be due to slow GI bleed, unknown site, in the setting of triple therapy (with aspirin, Plavix, Eliquis) Blood work obtained with hemoglobin 6 on admission to [facility],No reports of blood in stool or melena during this hospitaliz ation S/p 1 PRBC, status post 1 liter fluid bolus in ED patient is on triple therapy as an outpatient (per vascular surgery documentat ion and per coordinati on, Eliquis for her bypass patency) it was determined to dc eliquiscojosseline villagranueferro us sulfate 325 mg dailycont. Vit D 1000u dailymonit or cbc and bmp weekly on mondays x 3 Anxiety 87991841 F41.9 while in hopsital her ativan 0.5 mg q6 prn was discontinu edcontinue Duloxetine 20 mg dailyConti nue to monitorPsy ch following as well. Hypothyroidism 34479027 E03.9 adjusted in hospitalco nt levothyrox ine 200 mcg po dailyreche ck tsh in 8 weeksmonit or Essential hypertension 59289584 I10 bp initially soft in hospital, lisinopril was held, now resolved and resumedcon tlisinopri l 5 mg po dailymetop rolol 50 mg po q 12 hoursmonit or Amputated below knee 299 396843 Z89.519 right below knee amputation , continues to heal well.jose nue tylenol and lyricafu with vascular as planned Peripheral vascular disease 251304322 I73.9 eliquis on holdcontin ueasa, plavixlyri ca 150 mg qdmonitor Pressure i njury of coccygeal region of back stage II [id number] 9742403 L89.152 healing denuded skin to right coccyx02/06 apply barrier cream topically bid and prnfrequen t brief changes and reposition ingmonitor for infection Vascular dementia 994676 004 F01.54 stablediff iculty to recall thoughts and respond to questions at baseline per staffmood stablecont inue supportive caremonito r for decline. [id number] BHARAT MIRANDA [address] [address] 02/12/2024 14:04:30 02/18/2024 09:14:45 Anxiety 11455684 F41.9 stableDulo xetine 20 mg dailyConti nue to monitorPsy ch following as well. Hypothyroidism 16903185 E03.9 adjusted in hospitalco nt levothyrox ine 200 mcg po dailyreche ck tsh in 8 weeksmonit or Essential hypertension 36551428 I10 stable-lis inopril 5 mg po dailymetop rolol 50 mg po q 12 hoursmonit or Amputated below knee 299 826702 Z89.519 right below knee amputation , continues to heal well.jose nue tylenol and lyricafu with vascular as planned Peripheral vascular disease 089780057 I73.9 eliquis stoppedcon tinue:asa, plavixlyri ca 150 mg qdmonitor Vascular dementia 208296 [address] declinebas mauri difficulty with word findingmoo d stablecont inue supportive caremonito r for decline. Anemia 924705056 D64.9 continuefe rrous sulfate 325 mg dailycont. Vit D 1000u dailymonit or cbc and bmp weekly on mondays x 3 [id number] BHARAT MIRANDA [address] [address] 02/16/2024 11:10:23 02/18/2024 10:20:09 Anxiety 82136630 F41.9 stableDulo xetine 20 mg dailyConti nue to monitorPsy ch following as well. Hypothyroidism 67101879 E03.9 adjusted in hospitalco nt levothyrox ine 200 mcg po dailyreche ck tsh in 8 weeksmonit or Essential hypertension 25480625 I10 stable-lis inopril 5 mg po dailymetop rolol 50 mg po q 12 hoursmonit or Amputated below knee 299 836163 Z89.519 right below knee amputation , continues to heal well.jose nue tylenol and lyricafu with vascular as planned Peripheral vascular disease 072865253 I73.9 eliquis stoppedcon tinue:asa, plavixlyri ca 150 mg qdmonitor Vascular dementia 873033 [address] declinebas mauri difficulty with word findingmoo d stablecont inue supportive caremonito r for decline. Anemia 820327531 D64.9 continuefe rrous sulfate 325 mg dailycont. Vit D 1000u dailymonit or cbc and bmp weekly on mondays x 3 [id number] BHARAT MIRANDA [address] [address] 02/24/2024 10:14:07 02/26/2024 14:32:41 Anxiety 28693121 F41.9 stablecont inue duloxetine 20 mg daily- she is having a positive response with med.Contin ue to monitorupd ate HDBH with concerns. Hypothyroidism 26563687 E03.9 adjusted in hospitalco nt levothyrox ine 200 mcg po dailyreche ck tsh in 8 weeks- ord for . 02/13monito r Essential hypertension 26379631 I10 continue lisinopril 5 mg po dailyconti nue metoprolol 50 mg po q 12 hoursmonit or Amputated below knee 299 469695 Z89.519 right below knee amputation , continues to heal well.jose nue tylenol and lyricafu with vascular as planned Peripheral vascular disease 658376130 I73.9 eliquis stoppedcon tinue:asa, plavixlyri ca 150 mg qdmonitor Vascular dementia 733283 004 F01.54 expect declinebas mauri difficulty with word findingmoo d stablecont inue supportive caremonito r for decline. Anemia 573153615 D64.9 continuefe rrous sulfate 325 mg dailycont. Vit D 1000u dailymonit or cbc and bmp weekly on mondays x 39/3: H/H has been stable increasing every week. [id number] BHARAT MIRANDA [address] [address] 02/26/2024 11:44:42 03/01/2024 13:22:49 Amputated below knee 736798309 Z89.519 right below knee amputation open wound noted on stump concerning for infection, yellowish drainage noted on dressing ,will send culture.co ntinue tylenol and lyricafu with vascular as planned Peripheral vascular disease 920716134 I73.9 eliquis stoppedcon tinue:asa, plavixlyri ca 150 mg qdmonitor Vascular dementia 940892 004 F01.54 expect declinebas mauri difficulty with word findingmoo d stablecont inue supportive caremonito r for decline. [id number] BHARAT MIRANDA [address] [address] 03/01/2024 09:49:14 03/03/2024 10:15:18 Amputated below knee 139156739 Z89.519 right below knee amputation wound culture pendingcon tinue tylenol and lyricafu with vascular as planned Peripheral vascular disease 707552815 I73.9 eliquis stoppedcon tinue:asa, plavixlyri ca 150 mg qdmonitor Vascular dementia 440472 004 F01.54 expect declinebas mauri difficulty with word findingmoo d stablecont inue supportive caremonito r for decline. [id number] BHARAT MIRANDA [address] [address] 03/08/2024 08:48:56 03/10/2024 08:51:51 Amputated below knee 693847723 Z89.519 right below knee amputation continue tylenol and lyricafu with vascular as planned on 03/12/24 Peripheral vascular disease 063805766 I73.9 eliquis stoppedcon tinue:asa, plavixlyri ca 150 mg qdmonitor Vascular dementia 873509 004 F01.54 expect declinebas mauri difficulty with word findingmoo d stablecont inue supportive caremonito r for decline. Subconjunc tival hemorrhage of left eye 8771367400 85142 H11.32 no pain or visual changesnur sing to update provider for changes in vision, pain or discharge. can apply warm compress for comfort if irritated. monitor for worsening sx, pt is on asa and plavix daily.H/H stable , will continue to monitor [id number] BHARAT MIRANDA [address] [address] 03/15/2024 10:46:00 03/16/2024 13:37:52 Amputated below knee 644164324 Z89.519 right below knee amputation continue tylenol and lyricaVasc ular follow up on 03/12:There are 5 small open wounds along her BKA incision line.These wounds appear to be shallow and are covered with fibrinous exudateno foul odor,mild localized ed erythema surroundin g these wounds.Sta rted on santyl for chemical debridemen t.follow up with vascular in 3 weeks. Peripheral vascular disease 338951552 I73.9 03/12 carotid duplex shows 70 to 99% stenosis in her right ICA, this is s/p TCAR and she has a patent stent. Her left side shows 1 to 49% stenosis in the ICA with a patent stent.repe at duplex in 6 months eliquis stoppedcon tinue:asa, plavixlyri ca 150 mg qdmonitor Vascular dementia 410795 004 F01.54 expect declinebas mauri difficulty with word findingmoo d stablecont inue supportive caremonito r for decline. Subconjunc tival hemorrhage of left eye 8356060510 81456 H11.32 resolvingn o pain or visual changesnur sing to update provider for changes in vision, pain or discharge. can apply warm compress for comfort if irritated. monitor for worsening sx, pt is on asa and plavix daily.H/H stable , will continue to monitor Insomnia 738554757 G47.0 0 see HPIstop melatonins tart trazodone 50 mg at HSmonitor for effectiven ess [id number] BHARAT MIRANDA [address] [facility] [place] [address] 03/18/2024 11:08:23 03/19/2024 12:52:01 Amputated below knee 929551840 Z89.519 right below knee amputation continue tylenol and lyricaVasc ular follow up on 03/12:There are 5 small open wounds along her BKA incision line.These wounds appear to be shallow and are covered with fibrinous exudateno foul odor,mild localized ed erythema surroundin g these wounds.Sta rted on santyl for chemical debridemen t.follow up with vascular in 3 weeks.nurs ing updated to apply lowell wrap daily with rationale to improve blood flow and promote wound healing. Peripheral vascular disease 909122577 I73.9 03/12 carotid duplex shows 70 to 99% stenosis in her right ICA, this is s/p TCAR and she has a patent stent. Her left side shows 1 to 49% stenosis in the ICA with a patent stent.repe at duplex in 6 monthsshe denies any chest pain or any extremity numbness or increasing weakness. eliquis stoppedcon tinue:asa, plavixlyri ca 150 mg qdmonitor Vascular dementia 349531 004 F01.54 expect declinebas mauri difficulty with word findingmoo d stablecont inue supportive caremonito r for decline. Subconjunc tival hemorrhage of left eye 2853053003 00473 H11.32 resolvingn o pain or visual changesnur sing to update provider for changes in vision, pain or discharge. can apply warm compress for comfort if irritated. monitor for worsening sx, pt is on asa and plavix daily.H/H stable , will continue to monitor Insomnia 005350459 G47.0 0 continue trazodone 50 mg at HS- will reassess at next visit.gonzalo mcdonough for effectiven essdiscuss ed with patient avoiding caffeine drinks before bed, antidepres racheal and BP meds can causes insomnia. we discussed trying relaxation techniques such as deep breathing and guided imagery. [id number] BHARAT MIRANDA [address] [place] [address] 03/23/2024 14:42:28 03/24/2024 11:41:01 Amputated below knee 268225078 Z89.519 right below knee amputation continue tylenol and lyricaVasc ular follow up on 03/12:There are 5 small open wounds along her BKA incision line.- nursing to continue with wound careThese wounds appear to be shallow and are covered with fibrinous exudateno foul odor,mild localized ed erythema surroundin g these wounds.Sta rted on santyl for chemical debridemen t.follow up with vascular in 3 weeks.nurs ing updated to apply lowell wrap daily with rationale to improve blood flow and promote wound healing. Peripheral vascular disease 945925344 I73.9 03/12 carotid duplex shows 70 to 99% stenosis in her right ICA, this is s/p TCAR and she has a patent stent. Her left side shows 1 to 49% stenosis in the ICA with a patent stent.repe at duplex in 6 monthsshe denies any chest pain or any extremity numbness or increasing weakness. eliquis stoppedcon tinue:asa, plavixlyri ca 150 mg qdmonitor Vascular dementia 972069 004 F01.54 expect declinebas mauri difficulty with word findingmoo d stablecont inue supportive caremonito r for decline. Subconjunc tival hemorrhage of left eye 4223112944 18164 H11.32 resolvingn o pain or visual changesnur sing to update provider for changes in vision, pain or discharge. can apply warm compress for comfort if irritated. monitor for worsening sx, pt is on asa and plavix daily.H/H stable , will continue to monitor Insomnia 754337119 G47.0 0 continue trazodone 50 mg at HS- will reassess at next visit.gonzalo mcdonough for effectiven essdiscuss ed with patient avoiding caffeine drinks before bed, antidepres racheal and BP meds can causes insomnia. we discussed trying relaxation techniques such as deep breathing and guided imagery. [id number] BHARAT MIRANDA [address] [place] [address] 03/29/2024 08:33:03 03/30/2024 11:47:07 Amputated below knee 349416684 Z89.519 followed closely by vascular.r ight below knee amputation continue tylenol and lyrica There are 5 small open wounds along her BKA incision line.- nursing to continue with wound careThese wounds appear to be shallow and are covered with fibrinous exudateno foul odor,mild localized ed erythema surroundin g these wounds.Sta rted on santyl for chemical debridemen t.nursing updated to apply lowell wrap daily with rationale to improve blood flow and promote wound healing. Peripheral vascular disease 473786789 I73.9 03/12 carotid duplex shows 70 to 99% stenosis in her right ICA, this is s/p TCAR and she has a patent stent. Her left side shows 1 to 49% stenosis in the ICA with a patent stent.repe at duplex in 6 monthsshe denies any chest pain or any extremity numbness or increasing weakness. eliquis stoppedcon tinue:asa, plavixlyri ca 150 mg qdmonitor Vascular dementia 476777 [address] declinebas mauri difficulty with word findingmoo d stablecont inue supportive caremonito r for decline. Subconjunc tival hemorrhage of left eye 0207957939 76425 H11.32 resolvingn o pain or visual changesnur sing to update provider for changes in vision, pain or discharge. can apply warm compress for comfort if irritated. monitor for worsening sx, pt is on asa and plavix daily.H/H stable , will continue to monitor Insomnia 430905327 G47.0 0 continue trazodone 50 mg at HS-monitor for effectiven essdiscuss ed with patient avoiding caffeine drinks before bed, antidepres racheal and BP meds can causes insomnia. we discussed trying relaxation techniques such as deep breathing and guided imagery. Health Concerns Section Related Observation LastModified by Organization Detai ls LastModified Time None Recorded Concern Status LastModified by Organization Details LastModified Time None Recorded Advance Directives Directive Y: Payers Insurance Date Sequence Insurance Name Policy Number Policy Miranda Covered Member ID Miranda Member ID Guarantor Name 03/24/2024 2 [place] [facility] Pat Ochoa [id number] Pat Ochoa 03/23/2024 1 [place]ICARE B[place] [employer] Pat Ochoa [id number] Pat Ochoa Notes Date Note Type Note Provider Name and Address Organization Details Recorded Time 03/08/2024 text/html ROS as noted in the HPI This is a 68 yr old female patient with a past medical history that includes diabetes, hypertension, hyperlipidemia disease, peripheral artery disease, recent right foot debridement with skin grafts and R BKA in 10/2023. She was sent for h/h 12/09 and melena, transfused with 1 unit PRBCs and IVF, anemia suspected to be due to slow GI bleed, unknown site, in the setting of triple therapy (with aspirin, Plavix, Eliquis)Hosp summary: Patient was on triple therapy, discontinued Eliquis after speaking with vascular surgery, to continue on aspirin and Plavix for peripheral vascular disease. fu with vascular as planned.EGD/colonosco py was done on 02/04, per results, no evident bleeding lesions, evidence of esophagitis dissecans superficialis, hiatal hernia, evidence of prior sleeve gastrectomyPer GI recommendations, okay to resume prior diet, and antithrombotic therapy, no GI follow-up is needed unless warranted by results of current biopsies . Will continue PPI once daily on discharge. No melena found during hospitalization. While in the hospital her levothyroxine was decreased from 225 mcg to 200 mcg daily. Her lisinopril was held in the hospital due to a soft bp and resumed on discharge. Seen today for acute rounding visit BHARAT MIRANDA [address] [facility], [facility] [address], [place], [id number], [employer] 03/08/2024 14:39:04 03/15/2024 text/html ROS as noted in the HPI This is a 68 yr old female patient with a past medical history that includes diabetes, hypertension, hyperlipidemia disease, peripheral artery disease, recent right foot debridement with skin grafts and R BKA in 10/2023. Seen for acute rounding visit.She is alert and verbal, denies any new discomfort. she is eating and drinking ok., she denies any cardiopulmonary complaints. she does reports trouble saying asleep at night, she report room mate is playing television all night. BHARAT MIRANDA [address] [facility], [address], [place], [id number], [employer] 03/16/2024 15:35:55 03/18/2024 text/html ROS as noted in the HPI This is a 68 yr old female patient with a past medical history that includes diabetes, hypertension, hyperlipidemia disease, peripheral artery disease, recent right foot debridement with skin grafts and R BKA in 10/2023. Seen for acute rounding visit. Patient is stable at her baseline. she is OOB sitting in wheelchair, she denies any new complaints. She does inquires about lowell bandage that she should be wearing around her stump for compression. will discuss with nursing to ensure right stump is lowell wrapped daily to improve blood flow to the heart and reduce tissue swelling. Patient does not have a stump strinker. BHARAT MIRANDA [address] [facility] [address], [place], [phone], [facility] [employer] 03/18/2024 16:22:53 03/23/2024 text/html ROS as noted in the HPI This is a 68 yr old female patient with a past medical history that includes diabetes, hypertension, hyperlipidemia disease, peripheral artery disease, recent right foot debridement with skin grafts and R BKA in 10/2023. Seen for acute rounding visit. Patient is stable at her baseline. she is OOB sitting in wheelchair, she denies any new complaints. She does inquires about lowell bandage that she should be wearing around her stump for compression. will discuss with nursing to ensure right stump is lowell wrapped daily to improve blood flow to the heart and reduce tissue swelling. Patient does not have a stump strinker. BHARAT MIRANDA [address] [place] [address] [address], [place], [id number], [facility] [employer] 03/23/2024 15:20:31 03/29/2024 text/html ROS as noted in the HPI This is a 68 yr old female patient with a past medical history that includes diabetes, hypertension, hyperlipidemia disease, peripheral artery disease, recent right foot debridement with skin grafts and R BKA in 10/2023. Seen for acute rounding visit. Patient is stable at her baseline. she is OOB sitting in wheelchair, she denies any new complaints. She does inquires about lowell bandage that she should be wearing around her stump for compression. will discuss with nursing to ensure right stump is lowell wrapped daily to improve blood flow to the heart and reduce tissue swelling. Patient does not have a stump strinker. BHARAT MIRANDA [address] [facility], [facility] [address], [place], [phone], [facility] [employer] 03/29/2024 13:22:00 OBGyn Episode No OBEpisode recorded.
[2025-03-21 06:56] LABS: Hematocrit 28.4 % (37.0-47.0); Hemoglobin 8.6 g/dl (12.0-16.0); Imm Gran Abs Auto 0.03 X10*3/uL (0.00-0.03); Imm Gran Pct Auto 0.4 % (0.0-0.4); Lymphocytes Absolute Auto 3.1 X10*3/uL (1.2-4.9); Mean Corpuscular HGB Conc 30.3 g/dl (31.0-35.0); Mean Corpuscular Hemoglobin 25.9 pg (27.0-33.0); Mean Corpuscular Volume 85.5 fL (80.0-98.0); NRBC Abs Auto 0.000 X10*3/uL (0.0-0.012); NRBC Pct Auto 0.0 /100WBC (0.0-0.2); Platelet Count 370 X10*3/uL (160-400); Red Blood Count 3.32 X10*6/uL (4.20-5.50); White Blood Count 8.3 X10*3/uL (4.8-10.8)
[2025-03-21 07:23] LABS: Anion Gap 12 (12-20); Blood Urea Nitrogen 44 mg/dL (9-16); Calcium 9.0 mg/dL (8.4-10.2); Carbon Dioxide 23 mmol/L (22-29); Chloride 108 mmol/L (96-108); Estimated Glomerular Filt Rate 41; Potassium 5.2 mmol/L (3.3-5.1); Sodium 138 mmol/L (135-145)
== END 2025-03-21 06:34 | disposition home or self-care (01) ==
LOC: HO.MMNH3L 06:33
PROVIDERS: Visit Provider Student in an Organized Health Care Education/Training Program
DX: I25.9 Chronic ischemic heart disease, unspecified (principal); I69.398 Other sequelae of cerebral infarction; E03.9 Hypothyroidism, unspecified; Z89.611 Acquired absence of right leg above knee
CPT/HCPCS: 36415; 80048; 85025

== ENCOUNTER 2025-06-17 17:53 | Outpatient (REF) | payer MEDICARE, SELFPAY ==
[2025-06-17 18:00] LABS: Appearance Urine Turbid; Glucose Urine UA Negative (Negative); PH 7.5 (5.0-9.0); Specific Gravity - Urine 1.015 (1.005-1.025); UMIC TRIGGER UA YES
== END 2025-06-17 17:54 | disposition home or self-care (01) ==
LOC: HO.MMNH3L 17:53
PROVIDERS: Visit Provider Physician Assistant Medical
DX: F01.A0 Vascular dementia, mild, without behavioral disturbance, psychotic disturbance, mood disturbance, and anxiety (principal); I12.9 Hypertensive chronic kidney disease with stage 1 through stage 4 chronic kidney disease, or unspecified chronic kidney disease; N18.31 Chronic kidney disease, stage 3a
CPT/HCPCS: 81001; 87086; 87088; 87186